=== PATIENT | female | born 1940 | race Caucasian/White ===

== ENCOUNTER 2020-11-12 07:53 | Outpatient (REF) | payer MEDICARE, SELFPAY ==
[2020-11-12 12:03] LABS: Alanine Aminotransferase 9 U/L (0-31); Anion Gap 16 (12-20); Aspartate Amino Transferase 17 U/L (5-31); Blood Urea Nitrogen 19 mg/dL (9-16); Calcium 9.4 mg/dL (8.4-10.2); Carbon Dioxide 25 mmol/L (22-29); Chloride 107 mmol/L (96-108); Cholesterol 228 mg/dL; Estimated Glomerular Filt Rate 54; Glucose Fasting 117 mg/dL (60-99); HDL Cholesterol 54 mg/dL; LDL Cholesterol Calculated 140 mg/dl; Potassium 3.9 mmol/L (3.3-5.1); Sodium 144 mmol/L (135-145); Triglycerides 172 mg/dL
[2020-11-12 12:06] LABS: Vitamin D 25-OH Total 39.7 ng/mL (>30)
== END 2020-11-12 07:54 | disposition home or self-care (01) ==
LOC: HO.HMGCLDS 07:53
PROVIDERS: PCP Internal Medicine; Visit Provider Internal Medicine
DX: I10 Essential (primary) hypertension (principal); R73.01 Impaired fasting glucose; E78.5 Hyperlipidemia, unspecified; Z78.0 Asymptomatic menopausal state
CPT/HCPCS: 36415; 80048; 80061; 82306; 84450; 84460

== ENCOUNTER 2023-12-05 10:33 | Outpatient (AMB) | payer MEDICARE, SELFPAY ==
--- NOTE | 2023-12-05 10:36 | MHC.PC.OV ---
Vital Signs 12/05/23 10:49 Height 5 ft 2 in Weight 139 lb BMI 25.4 BP 110/64 Blood Pressure Location Lt brachial Position Sitting Pulse 84 Pulse Source Pulse Oximeter Pulse Oximetry (%) 96 Oxygen Delivery Method Room Air Intake Visit Reasons: medication follow up Intake Note: Pt is here today for f/u medication Accompanied by: Child (Horacio) Allergies No Known Allergies [No Known Allergies*] Allergy (Verified 12/05/23 11:02) Medication List - Last Reconciled 12/05/23 by Mary Bustos MD aspirin (Adult Low Dose Aspirin) 81 mg PO DAILY dupilumab (Dupixent) 300 mg subcut Q2W lisinopril 5 mg PO DAILY multivitamin 1 tab PO DAILY triamcinolone acetonide 0.5% 1 appl topical BID Tobacco use date assessed: 12/05/23 Fall risk assessment: No Falls in past year Last assessed Fall Risk: 12/05/23 Dental Screening Dental Screen Date: 12/05/23 Did you have a dental visit in the last 12 months?: No Was dental information given to patient?: Patient has dentist HPI medication follow up HPI Details 83-year-old lady here today for accompanied by son and , here today for follow-up on her hypertension. She currently taking lisinopril 5 mg 1 daily, blood pressure stable controlled on present dose. She has history of osteopenia with history of rib fractures, does not want to do another bone density scan, as she does not want to take another medication. As per son and , patient is mostly sedentary, unmotivated to join in exercise programs at the senior center or at the [facility] or even doing it at home with her . She has a good appetite, but eats more sweets, more than her meals. 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 [facility] Medical History (Updated 12/06/23 @ 03:26 by Mary Bustos MD) History of dysfunctional uterine bleeding Osteopenia Osteoarthritis involving multiple joints on both sides of body History of rib fracture Impaired fasting glucose Dyslipidemia Essential hypertension Surgical History S/P JEOVANY-BSO Family History (Updated 12/05/23 @ 10:47 by Jennifer Talbot CMA) Father Diabetes mellitus Mother Breast cancer Social History Housing: House Alcohol intake: never Patient Tobacco Use Status: Former Tobacco user e-Cigarette/Vaping Use: Never Used Second Hand Smoke Exposure: No Current occupational status: retired Cognitive needs: No Hearing needs: No Vision needs: Yes Questionnaire PHQ-9 Over the last 2 weeks, how often have you been bothered by any of the following problems? 1. Little interest or pleasure in doing things: not at all 2. Feeling down, depressed, or hopeless: not at all 3. Trouble falling or staying asleep, or sleeping too much: not at all 4. Feeling tired or having little energy: not at all 5. Poor appetite or overeating: not at all 6. Feeling bad about yourself - or that you are a failure or have let yourself or your family down: not at all 7. Trouble concentrating on things, such as reading the newspaper or watching television: not at all 8. Moving or speaking so slowly that other people could have noticed. Or the opposite - being so fidgety or restless that you have been moving around a lot more than usual: not at all 9. Thoughts that you would be better off or of hurting yourself in some way: not at all Total score: 0 Depression Screening Interpretation: Negative Depression Screening Done: Yes 62020 - PHQ-9 Billing: Yes Source: Developed by Drs. Isiah Grady, Anna Robles, Bharat Dey and colleagues, with an educational ro from [employer]. Thrive Questionnaire Date Thrive assessed: 12/05/23 I am a: Patient What is your living situation today?: I have a steady place to live Within the past 12 months, did the food you bought not last and you didn't have the money to get more?: Never true Within the past 12 months, did you worry whether your food would run out before you got money to buy more?: Never true Do you have trouble paying for medicines?: No Do you have trouble getting transportation to medical appointments?: No Do you have trouble paying your heating and electricity bill?: No Do you have trouble taking care of your child, family member or friend?: No Do you have trouble with day-to-day activities such as bathing, preparing meals, shopping, managing finances, etc.?: No Are you currently unemployed and looking for a job?: No Are you interested in more education?: No THRIVE Score: 0 AUDIT C Alcohol Use Questionnaire (AUDIT-C) 1. How often do you have a drink containing alcohol?: Never Total Score: 0 BLANQUITA-7 AMB Questionnaire BLANQUITA-7 Date BLANQUITA - 7 assessed: 12/05/23 Feeling nervous, anxious, or on edge: 0 = Not at all Not being able to stop or control worryin = Not at all Worrying too much about different things: 0 = Not at all Trouble relaxin = Not at all Being so restless that it is hard to sit still: 0 = Not at all Becoming easily annoyed or irritable: 0 = Not at all Feeling afraid as if something awful might happen: 0 = Not at all Total BLANQUITA-7 score (0-4 normal; 5-9 mild; 10-14 moderate; 15-21 severe): 0 Source: Developed by Drs. Isiah Grady, Anna Robles, Bharat Dey and colleagues, with an educational ro from [employer]. BLANQUITA-7 Assessment Billing BLANQUITA-7 Assessment Tool: BLANQUITA-7 Assessment 23524 Review of Systems Const Denies fatigue, Denies fever(s), Denies frequent falls and Denies headache(s) Eyes Denies change in vision ENT Denies dizziness, Denies headache(s), Denies sinus pressure and Denies sore throat Card Denies chest pain, Denies rapid heart rate, Denies irregular heart rhythm, Denies leg edema and Denies dyspnea Resp Denies cough and Denies dyspnea GI Denies abdominal pain, Denies melena, Denies hematochezia and Reports loose stools Denies hematuria, Denies dysuria, Reports urinary incontinence and Denies urinary urgency Musc Denies arthralgias, Denies joint swelling and Reports stiffness Skin/Breast Reports as per HPI Neuro Denies dizziness, Denies frequent falls and Denies headache(s) Psych Reports no additional complaints Endo Denies fatigue Kofi/Lymph Reports no additional complaints Aller/Immun Reports no additional complaints Physical exam (Primary Care) Vital Signs: Last Vital Signs Pulse 84 04/15/24 10:49 BP 110/64 12/05/23 10:49 Pulse Ox 96 12/05/23 10:49 Oxygen Delivery Method Room Air 12/05/23 10:49 BMI result Body Mass Index 25.4 Tobacco/Smoking Status: Tobacco use Status Tobacco use date assessed 12/05/23 12/05/23 10:52 Patient Tobacco Use Status Former Tobacco user 12/05/23 10:36 e-Cigarette/Vaping Use Never Used 12/05/23 10:36 PHQ-9: PHQ-9 Score PHQ-9: Total score 0 12/05/23 11:09 Depression Screening Interpretation: Negative Thrive Assessment: Date of Thrive Assessment Date Thrive assessed 12/05/23 12/05/23 10:52 Const General: comfortable, no acute distress and alert Nutritional Appearance: average body habitus Orientation/consciousness: patient oriented x3 Limitations: ambulation with walker HENMT Head: Yes normocephalic Ears: TM's normal bilaterally and EAC's normal General nose exam: Normal external nose present, Normal nasal mucous membranes and turbinates present and No nasal discharge present Face and sinus: Yes face symmetric Mouth: oropharynx normal and moist mucous membranes Eyes General: appearance normal, both eyes and all related structures Neck Neck: Yes full ROM, Yes no lymphadenopathy and Yes supple Resp Auscultation: clear to auscultation bilaterally Cardio Other: S1-S2 present regular rate and rhythm GI Palpation (GI): Soft to palpation, nontender and no guarding Auscultation: normal bowel sounds Neuro General: patient oriented x3, moves all extremities, Normal light touch and pain sensation, no focal motor deficits and CN's II-XI intact bilaterally Extrem General: Yes full ROM, Yes no joint enlargement, Yes no clubbing, cyanosis or edema, Yes no pedal edema and Yes no calf tenderness Psych Appearance: grossly normal and well kempt Mental Status: mental status grossly normal Speech and movement: Normal speech and movement present Affect: normal affect Attitude: cooperative Assessment and Plan Assessment & Plan (1) Prurigo nodularis: Code(s): L28.1 - Prurigo nodularis Plan: Followed by dermatology currently on Dupixent (2) Dyslipidemia: Code(s): E78.5 - Hyperlipidemia, unspecified Plan: Ordered fasting lipids, (3) Essential hypertension: Code(s): I10 - Essential (primary) hypertension Plan: Blood pressure at goal of less than 130/80. Continue with lisinopril 5 mg daily. Reinforced importance of following a low sodium diet, getting regular exercise, and lowering stress levels. (4) Impaired fasting glucose: Code(s): R73.01 - Impaired fasting glucose Plan: Basic metabolic panel including fasting blood sugar ordered as well as hemoglobin A1c (5) Osteopenia: Code(s): M85.80 - Other specified disorders of bone density and structure, unspecified site Qualifiers: Osteopenia location: multiple sites Qualified Code(s): M85.89 - Other specified disorders of bone density and structure, multiple sites Plan: Reinforced importance of doing regular weight-bearing exercise, but patient unmotivated to do any exercise at all again stressed importance of taking adequate calcium from dietary sources and take at least 2000 units of vitamin-D 3 daily. Ordered her vitamin-D level and basic metabolic panel check. Does not wan to correct further bone densities testing as she does not want to take another medication if it shows that she has osteoporosis already.. Stressed importance of fall prevention Orders: Orders Alanine Aminotransferase 12/05/23 E78.5 - Hyperlipidemia, unspecified, I10 - Essential (primary) hypertension, R73.01 - Impaired fasting glucose Lipid Panel 12/05/23 E78.5 - Hyperlipidemia, unspecified, I10 - Essential (primary) hypertension, R73.01 - Impaired fasting glucose Basic Metabolic Panel Fasting 12/05/23 E78.5 - Hyperlipidemia, unspecified, I10 - Essential (primary) hypertension, R73.01 - Impaired fasting glucose AMB Hemoglobin A1c 12/05/23 E78.5 - Hyperlipidemia, unspecified, I10 - Essential (primary) hypertension, R73.01 - Impaired fasting glucose Vitamin D 25-OH Total 12/05/23 E78.5 - Hyperlipidemia, unspecified, I10 - Essential (primary) hypertension, R73.01 - Impaired fasting glucose Medications: Refilled lisinopril 5 mg PO DAILY 90 tabs 4RF I10 - Essential (primary) hypertension Coding Level of Care Code Est Pt Level 4 (10750) Diagnoses Prurigo nodularis L28.1 Dyslipidemia E78.5 Essential hypertension I10 Impaired fasting glucose R73.01 Osteopenia of multiple sites M85.89 Osteopenia location: multiple sites Additional Codes BLANQUITA-7 Assessment Billing - BLANQUITA-7 Assessment Tool: BLANQUITA-7 Assessment [id number] ([id number])
[2023-12-05 10:49] VITALS: BP 110/64; PULSE 84; O2SAT 96; BMI 25.4
== END 2023-12-05 11:17 | disposition home or self-care (01) ==
LOC: HO.HMGC 10:33
PROVIDERS: PCP Internal Medicine; Visit Provider Internal Medicine
DX: L28.1 Prurigo nodularis (principal); E78.5 Hyperlipidemia, unspecified; I10 Essential (primary) hypertension; R73.01 Impaired fasting glucose; M85.89 Other specified disorders of bone density and structure, multiple sites
CPT/HCPCS: 99214

== ENCOUNTER 2024-06-14 13:38 | Outpatient (AMB) | payer MEDICARE, SELFPAY ==
[2024-06-14 13:50] VITALS: BP 104/56; PULSE 88; O2SAT 98; BMI 25.2
--- NOTE | 2024-06-14 13:50 | A.OFFPC_ITS ---
Vital Signs 06/14/24 13:50 Height 5 ft 2 in Weight 138 lb BMI 25.2 BP 104/56 L Blood Pressure Location Rt brachial Position Sitting Pulse 88 Pulse Source Pulse Oximeter Pulse Oximetry (%) 98 Oxygen Delivery Method Room Air Intake Visit Reasons: discuss FMLA paperwork Intake Note: Pt is here today to discuss FMLA paperwork for son Auth Specialist: Present Accompanied by: Son (Mamadou) Allergies No Known Allergies [No Known Allergies*] Allergy (Verified 06/14/24 13:57) Medication List - Last Reconciled 06/14/24 by Mary Bustos MD aspirin (Adult Low Dose Aspirin) 81 mg PO DAILY dupilumab (Dupixent) 300 mg subcut Q2W lisinopril 5 mg PO DAILY multivitamin 1 tab PO DAILY triamcinolone acetonide 0.5% 1 appl topical BID Tobacco use date assessed: 06/14/24 Fall risk assessment: No Falls in past year Last assessed Fall Risk: 06/14/24 Dental Screening Dental Screen Date: 06/14/24 Did you have a dental visit in the last 12 months?: No Did you have a dental problem in the last 6 months where you did not have access to dental care?: No Was dental information given to patient?: Patient has dentist HPI discuss FMLA paperwork HPI Details 84-year-old lady with hypertension, oste oarthritis, and history of prurigo nodularis, here today for follow-up. She is accompanied by her son who is now her main end user consultant, as patient has has been sudden be from bladder cancer 2 months ago . Her Son is taking care of all the finances, utility payments, banking, as patient has been having a lot of memory difficulties, especially short-term memory. Patient has sinus requesting for an FMLA form to be completed, as he is currently on a continuously until September of next year, taking care of his mother, and making arrangements for her care when he goes back to work. Patient's blood pressure today was noted to be on the low side. She does not complain however of any headache, no lightheadedness, no chest pain or shortness of breath. She has difficulty however with walking, unable to walk for long distances has to have a wheelchair when going out of the house due to generalized weakness and pain/ stiffness in her joints. [facility] Medical History (Updated 06/14/24 @ 14:37 by Mary Bustos MD) Memory change History of dysfunctional uterine bleeding Osteopenia Osteoarthritis involving multiple joints on both sides of body History of rib fracture Impaired fasting glucose Dyslipidemia Essential hypertension Surgical History S/P JEOVANY-BSO Family History Father Diabetes mellitus Mother Breast cancer Social History Housing: House Alcohol intake: never Patient Tobacco Use Status: Former Tobacco user e-Cigarette/Vaping Use: Never Used Second Hand Smoke Exposure: No Current occupational status: retired Cognitive needs: No Hearing needs: No Vision needs: Yes Questionnaire Thrive Questionnaire Date Thrive assessed: 06/14/24 I am a: Patient What is your living situation today?: I have a steady place to live Within the past 12 months, did the food you bought not last and you didn't have the money to get more?: Never true Within the past 12 months, did you worry whether your food would run out before you got money to buy more?: Never true Do you have trouble paying for medicines?: No Do you have trouble getting transportation to medical appointments?: No Do you have trouble paying your heating and electricity bill?: No Do you have trouble with day-to-day activities such as bathing, preparing meals, shopping, managing finances, etc.?: Yes Are you currently unemployed and looking for a job?: No Are you interested in more education?: No THRIVE Score: 0 AUDIT C Alcohol Use Questionnaire (AUDIT-C) 1. How often do you have a drink containing alcohol?: Never 3. How often do you have six or more drinks on one occasion?: Never Total Score: 0 BLANQUITA-7 AMB Questionnaire BLANQUITA-7 Date BLANQUITA - 7 assessed: 06/14/24 Feeling nervous, anxious, or on edge: 1 = Several days Not being able to stop or control worryin = Several days Worrying too much about different things: 1 = Several days Trouble relaxin = Several days Being so restless that it is hard to sit still: 0 = Not at all Becoming easily annoyed or irritable: 1 = Several days Feeling afraid as if something awful might happen: 1 = Several days Total BLANQUITA-7 score (0-4 normal; 5-9 mild; 10-14 moderate; 15-21 severe): 6 Source: Developed by Drs. Isiah Grady, Anna Robles, Bharat Dey and colleagues, with an educational ro from [employer]. Review of Systems Const Denies frequent falls, Denies headache(s) and Reports weakness Eyes Denies change in vision ENT Denies dizziness and Denies headache(s) Card Denies chest pain, Denies rapid heart rate, Denies irregular heart rhythm, Denies leg edema and Denies dyspnea Resp Denies cough and Denies dyspnea GI Denies abdominal pain and Denies hematochezia Musc Denies joint swelling and Reports stiffness Skin/Breast Reports as per HPI Neuro Reports as per HPI, Denies dizziness, Denies frequent falls, Denies headache(s) and Reports weakness Psych Reports no additional complaints Endo Reports no additional complaints Kofi/Lymph Reports no additional complaints Aller/Immun Reports no additional complaints Physical exam (Primary Care) Vital Signs: Last Vital Signs Pulse 88 06/14/24 13:50 BP 104/56 L 06/14/24 13:50 Pulse Ox 98 06/14/24 13:50 Oxygen Delivery Method Room Air 06/14/24 13:50 BMI result Body Mass Index 25.2 Tobacco/Smoking Status: Tobacco use Status Tobacco use date assessed 06/14/24 06/14/24 13:54 Patient Tobacco Use Status Former Tobacco user 06/14/24 13:54 e-Cigarette/Vaping Use Never Used 06/14/24 13:54 Thrive Assessment: Date of Thrive Assessment Date Thrive assessed 06/14/24 06/14/24 13:54 Const General: comfortable, no acute distress and alert Nutritional Appearance: average body habitus Orientation/consciousness: patient oriented x3 Limitations: ambulation with walker HENMT Head: Yes normocephalic General nose exam: Normal external nose present Face and sinus: Yes face symmetric Mouth: oropharynx normal and moist mucous membranes Eyes General: appearance normal, both eyes and all related structures Neck Neck: Yes full ROM, Yes no lymphadenopathy and Yes supple Resp Auscultation: clear to auscultation bilaterally Cardio Other: S1-S2 present regular rate and rhythm GI Palpation (GI): Soft to palpation, nontender and no guarding Auscultation: normal bowel sounds Neuro General: patient oriented x3, moves all extremities, Normal light touch and pain sensation, no focal motor deficits and CN's II-XI intact bilaterally Extrem General: Yes full ROM, Yes no joint enlargement and Yes no clubbing, cyanosis or edema Psych Appearance: grossly normal and well kempt Mental Status: mental status grossly normal Speech and movement: Normal speech and movement present Affect: normal affect Attitude: cooperative Coding Level of Care Code Est Pt Level 4 (31133) Complex EM visit Add On G2211 Diagnoses Prurigo nodularis L28.1 Osteoarthritis involving multiple 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 Advise patient and sent to check her blood pressure at home and keep a log of the readings, and notify us if blood pressure persistently less than 110/70. In the meantime will just continue on lisinopril 10 mg once daily pelvic reminded to get fasting labs done, already ordered (4) Memory change: Code(s): R41.3 - Other amnesia Category: Medical Plan: Patient exhibiting some changes now more pronounced with short-term memory
== END 2024-06-14 15:26 | disposition home or self-care (01) ==
LOC: HO.HMCC 13:38
PROVIDERS: PCP Internal Medicine; Visit Provider Internal Medicine
DX: L28.1 Prurigo nodularis (principal); M15.9 Polyosteoarthritis, unspecified; I10 Essential (primary) hypertension; R41.3 Other amnesia

== ENCOUNTER → 2024-06-14 13:38 | Outpatient (BNVA) | payer MEDICARE, SELFPAY | PROVIDERS: PCP Internal Medicine; Visit Provider Internal Medicine | DX: L28.1 Prurigo nodularis (principal); M15.9 Polyosteoarthritis, unspecified; I10 Essential (primary) hypertension; R41.3 Other amnesia | CPT/HCPCS: 96127; 99212 ==

== ENCOUNTER 2024-09-25 15:43 | Inpatient (IN) | payer MEDICARE, SELFPAY ==
--- NOTE | 2024-09-25 | ECG_ITS ---
Test Reason : SOB Blood Pressure : */* mmHG Vent. Rate : 100 BPM Atrial Rate : 100 BPM P-R Int : 182 ms QRS Dur : 58 ms QT Int : 336 ms P-R-T Axes : * 58 57 degrees QTcB Int : 433 ms Normal sinus rhythm Normal ECG When compared with ECG of 09-Dec-2012 08:15, No significant changes seen Referred By: Generic ED Physician Electronically Signed By: Murtaza Pisano
--- NOTE | ~2024-09-25 | XR_ITS ---
CLINICAL HISTORY: sob 1 view chest x-ray Comparison: CR/SR - XR CHEST 1V - 09/25/24 17:02 EST Findings: Lungs are clear. There is a small hiatal hernia. Heart size is normal. No acute fracture. IMPRESSION: 1. No acute findings. This document has been electronically signed by: Natalya Cespedes MD on 09/29/2024 16:09:16
--- NOTE | ~2024-09-25 | CT_ITS ---
CLINICAL HISTORY: lowrer abd pain with diarrhea CT abdomen and pelvis with contrast Comparison: CR/SR - XR CHEST 1V - 09/25/24 17:[address]/VT - ABD PELV W IV CON ONLY [id number] - 11/03/19 06:[address]/VT/SR - ABD PELV W IV CON ONLY [id number] - 11/03/19 06:57 EDT Findings: No consolidation at the lung bases. Unremarkable gallbladder and bladder. Status post hysterectomy. The other solid organs are unremarkable. Moderate-sized hiatal hernia. No bowel wall thickening or dilation. A normal appendix is identified. Colonic diverticulosis. No aneurysm. Severe calcified atherosclerotic disease. No lymphadenopathy. No ascites. No acute osseous abnormality. Grade 1 anterolisthesis of L4 on L5 and L5 on S1, degenerative. Impression: No acute findings. This document has been electronically signed by: Magdalena Moreno MD on 09/25/2024 17:49:47
--- NOTE | ~2024-09-25 | XR_ITS ---
EXAMINATION: XR CHEST CLINICAL INFORMATION: sob COMPARISON: Chest with left RIBS 11/06/2019 TECHNIQUE: Frontal view of the chest was obtained. FINDINGS: The lungs are well-expanded and clear acute pneumonic process. Heart size and pulmonary vascularity is normal. No gross bony abnormality seen. Suspect small hiatal hernia XR/XR chest 1V IMPRESSION: Unremarkable chest exam. Suspect small hiatal hernia. Electronically signed by: Chavo Yang MD 09/25/2024 05:14 PM EST
[2024-09-25 15:58] VITALS: BP 144/51; PULSE 104; PULSE 111; RESP 22; TEMP 37; O2SAT 94; O2SAT 98; BMI 26.0
[2024-09-25 16:03] VITALS: BP 112/57; PULSE 111; RESP 22; TEMP 37; O2SAT 98
--- NOTE | 2024-09-25 16:45 | ED_ITS ---
HPI - General Adult General Chief complaint: Dyspnea Stated complaint: ams,incontinence x3 days Time Seen by Provider: 09/25/24 16:14 Source: patient and family Mode of arrival: EMS Limitations: no limitations History of Present Illness ED Provider: HPI narrative: Patient's history of hypertension lives at home alone been feeling very weak for last 4 days having multiple loose bowels 3- 4 times a day with lower abdominal cramps no nausea no vomiting been eating normally does walk with a walker but very unsteady on her feet patient is gradually getting more weak and family unable to take care of her. No recent antibiotic intake no recent travel no bad food ingestion no fever no chills no any family member sick Related Data Home Medications ?Medication ?Instructions ?Recorded ?Confirmed aspirin 81 mg tablet,delayed 81 mg PO DAILY 11/14/20 09/25/24 release (Adult Low Dose Aspirin) multivitamin 1 tab PO DAILY 11/14/20 09/25/24 dupilumab 300 mg/2 mL subcutaneous 300 mg subcut Q2W 07/29/22 09/25/24 pen injector (Dupixent) Previous Rx's ?Medication ?Instructions ?Recorded lisinopril 5 mg tablet 5 mg PO DAILY #90 tabs 12/05/23 Allergies Allergy/AdvReac Type Severity Reaction Status Date / Time No Known Allergies Allergy Verified 09/25/24 16:01 [No Known Allergies*] Review of Systems 2 Review of Systems: Yes all other systems are reviewed and are negative [facility] Past Medical History Medical History Memory change History of dysfunctional uterine bleeding Osteopenia Osteoarthritis involving multiple joints on both sides of body History of rib fracture Impaired fasting glucose Dyslipidemia Essential hypertension Surgical History S/P JEOVANY-BSO Family History Family History Father Diabetes mellitus Mother Breast cancer Social History Social History Housing: House Alcohol intake: never Patient Tobacco Use Status: Former Tobacco user Smoked in Last 30 Days: No e-Cigarette/Vaping Use: Never Used Second Hand Smoke Exposure: No Use of substances other than those prescribed or required for medical reasons: No Advance Directives: Yes Advance Directives on File: Yes Advance Directives Date on File: 12/05/23 Do you have a plan to hurt others: No Plan Current occupational status: retired Cognitive needs: No Hearing needs: No Vision needs: Yes Physical Exam ED Vital Signs: Vital Signs - 24 hr 09/25/24 15:58 09/25/24 16:03 09/25/24 16:03 Temperature 98.6 F 98.6 F Pulse Rate 111 H 111 H Respiratory Rate 22 H 22 H 22 H Blood Pressure 112/57 L Pulse Oximetry 98 98 Oxygen Delivery Method Nasal Cannula Nasal Cannula Oxygen Flow Rate 09/25/24 19:35 09/25/24 20:07 Temperature 98.0 F Pulse Rate 85 89 Respiratory Rate 18 12 Blood Pressure 145/64 H Pulse Oximetry 98 Oxygen Delivery Method Nasal Cannula Oxygen Flow Rate 4 BMI result Body Mass Index 26.0 Appearance: Alert. Oriented X3. No acute distress. Eyes: No pallor no icterus ENT: Pharynx normal. Oral Mucosa moist Neck: Normal inspection. Neck supple. CVS: Normal heart rate and rhythm. Pulses normal. Respiratory: No respiratory distress. Equal air entry bilateral, bilateral wheezing no rales Abdomen: Soft and diffuse tenderness lower abdominal suprapubic area no rebound tenderness or guarding Bowel sounds are present, no mass palpable, no CVA tenderness Skin: Skin warm and dry. Normal skin color. Normal skin turgor. Extremities: No lower extremity edema. No calf tenderness Neuro: Oriented X 3. No motor deficit. No sensory deficit.No cerebellar signs , cranial nerves II-XII intact Medications Administered Generic Name Dose Route Start Last Admin Trade Name Freq PRN Reason Stop Dose Admin Acetaminophen 975 mg 09/25/24 23:10 09/26/24 00:18 Acetaminophen 325 Mg Tablet PO 975 mg Q6H PRN Administration Pain, Mild 1-3,fever,headache Enoxaparin Sodium 40 mg 09/25/24 23:15 09/25/24 23:54 Enoxaparin Sodium 40 Mg/0.4 Ml Syringe SUBCUT Not Given BEDTIME SARAH Discontinued Medications Generic Name Dose Route Start Last Admin Trade Name Freq PRN Reason Stop Dose Admin Albuterol Sulfate 2.5 mg/ 0 mg 09/25/24 18:46 09/25/24 19:31 Albuterol/Ipratropium 3 ml INHALE 09/25/24 18:47 5 dose ONCE ONE Administration Sodium Chloride 1,000 mls @ 999 mls/hr 09/25/24 16:36 09/25/24 16:56 Ns IV 09/25/24 17:36 999 mls/hr .Q1H1M ONE Administration Oseltamivir Phosphate 75 mg 09/25/24 18:44 09/25/24 20:23 Oseltamivir Phosphate 75 Mg Capsule PO 09/25/24 18:45 75 mg ONCE ONE Administration Medical Decision Making Medical Decision Making [facility] Narrative: Patient has increased weakness difficulty in ambulation noted to have influenza a and anemic with hemoglobin of 8.1 her baseline hemoglobin was 13 in 2019 denies any black stools chest x-ray negative for pneumonia guaiac was negative chest x-ray negative for infiltrate will admit patient for anemia/weakness/influenza a also workup showed iron-deficiency anemia with iron of 24 saturation 7% will start on ferrous sulfate CT scan of the abdomen negative chest x-ray negative Differential Diagnosis Differential Diagnoses: The differential diagnosis associated with the presentation includes Viral pneumonia/pneumonia/metabolic derangement/anemia Admission/Observation Consideration of admission/observation: Escalation of care including admission/observation considered Consult Healthcare Provider Management of the patient was discussed with: Hospitalist Lab Data [facility] Lab Attestation statement: I reviewed the patient's lab results. 09/25/24 16:47 09/25/24 16:47 Labs: Lab Results 09/25/24 09/25/24 09/25/24 Range/Units 16:47 16:57 19:24 WBC 6.0 (4.8-10.8) X10*3/uL RBC 3.32 L (4.20-5.50) X10*6/uL Hgb 8.1 L (12.0-16.0) g/dl Hct 27.2 L (37.0-47.0) % MCV 81.9 (80.0-98.0) fL MCH 24.4 L (27.0-33.0) pg MCHC 29.8 L (31.0-35.0) g/dl RDW 15.7 (11.0-16.0) % Plt Count 248 (160-400) X10*3/uL MPV 10.4 (9.4-12.3) fL Immature Gran % (Auto) 0.3 (0.0-0.4) % Neut % (Auto) 81.8 H (45-73) % Lymph % (Auto) 8.7 L (20-40) % [place] % (Auto) 8.0 (2-11) % Eos % (Auto) 0.2 (0-4) % Baso % (Auto) 1.0 (0-2) % Lymph # (Auto) 0.5 L (1.2-4.9) X10*3/uL [place] # (Auto) 0.5 (0.1-1.2) X10*3/uL Eos # (Auto) 0.0 (0.0-0.4) X10*3/uL Baso # (Auto) 0.1 (0.0-0.2) X10*3/uL Abs Immat Gran (auto) 0.02 (0.00-0.03) X10*3/uL Absolute Neuts (auto) 4.9 (2.0-8.3) x10*3/uL Absolute Nucleated RBC 0.000 (0.0-0.012) X10*3/uL Nucleated RBC % (auto) 0.0 (0.0-0.2) /100WBC VBG pH 7.37 (7.32-7.43) VBG pCO2 41 mmHg VBG pO2 41 mmHg VBG HCO3 24 (22-26) mmol/L VBG O2 Saturation 64.0 % VBG Base Excess -0.4 mmol/L Sodium 144 (135-145) mmol/L Potassium 4.2 (3.3-5.1) mmol/L Chloride 109 H (96-108) mmol/L Carbon Dioxide 22 (22-29) mmol/L Anion Gap 17 (12-20) BUN 22 H (9-16) mg/dL Creatinine 1.05 (0.5-1.4) mg/dL Estim Creat Clear Calc 33.8 Estimated GFR 50 Random Glucose 158 H (60-115) mg/dL Lactic Acid 1.9 (0.5-2.0) mmol/L Calcium 8.2 L D (8.4-10.2) mg/dL Magnesium 1.8 (1.6-2.6) mg/dL Iron 24 L (30-160) mcg/dL TIBC 321 (228-428) mcg/dL % Saturation 7 L (15-50) % Unsat Iron Binding 297 ug/dL Total Bilirubin 0.4 (0.0-1.0) mg/dL AST 34 H (5-31) U/L ALT 16 (0-31) U/L Alkaline Phosphatase 63 (39-117) U/L B-Natriuretic Peptide 175 H (<100) pg/mL Total Protein 6.7 (6.5-8.0) g/dL Albumin 3.5 (3.5-5.0) g/dL Urine Color Urine Appearance Urine pH (5.0-9.0) Ur Specific [place] (1.005-1.025) Urine Protein (Neg-Trace) mg/dL Urine Glucose (UA) (Negative) mg/dL Urine Ketones (Negative) mg/dL Urine Blood (Negative) Urine Nitrite (Negative) Ur Leukocyte Esterase (Negative) Urine RBC (0-2) /HPF Urine WBC (0-5) /HPF Ur Squamous Epith Cells (0-2) /HPF Urine Bacteria (None Seen) Hyaline Casts (0-2) /LPF Stool Occult Blood NEGATIVE (NEGATIVE) Influenza Type A (PCR) POSITIVE A (Negative) Influenza Type B (PCR) NEGATIVE (Negative) RSV RNA Qual (PCR) NEGATIVE (Negative) SARS-CoV-2 RNA (RT-PCR) NEGATIVE (Negative) Blood Type A Positive Antibody Screen NEGATIVE 09/25/24 Range/Units 20:29 WBC (4.8-10.8) X10*3/uL RBC (4.20-5.50) X10*6/uL Hgb (12.0-16.0) g/dl Hct (37.0-47.0) % MCV (80.0-98.0) fL MCH (27.0-33.0) pg MCHC (31.0-35.0) g/dl RDW (11.0-16.0) % Plt Count (160-400) X10*3/uL MPV (9.4-12.3) fL Immature Gran % (Auto) (0.0-0.4) % Neut % (Auto) (45-73) % Lymph % (Auto) (20-40) % [place] % (Auto) (2-11) % Eos % (Auto) (0-4) % Baso % (Auto) (0-2) % Lymph # (Auto) (1.2-4.9) X10*3/uL [place] # (Auto) (0.1-1.2) X10*3/uL Eos # (Auto) (0.0-0.4) X10*3/uL Baso # (Auto) (0.0-0.2) X10*3/uL Abs Immat Gran (auto) (0.00-0.03) X10*3/uL Absolute Neuts (auto) (2.0-8.3) x10*3/uL Absolute Nucleated RBC (0.0-0.012) X10*3/uL Nucleated RBC % (auto) (0.0-0.2) /100WBC VBG pH (7.32-7.43) VBG pCO2 mmHg VBG pO2 mmHg VBG HCO3 (22-26) mmol/L VBG O2 Saturation % VBG Base Excess mmol/L Sodium (135-145) mmol/L Potassium (3.3-5.1) mmol/L Chloride (96-108) mmol/L Carbon Dioxide (22-29) mmol/L Anion Gap (12-20) BUN (9-16) mg/dL Creatinine (0.5-1.4) mg/dL Estim Creat Clear Calc Estimated GFR Random Glucose (60-115) mg/dL Lactic Acid (0.5-2.0) mmol/L Calcium (8.4-10.2) mg/dL Magnesium (1.6-2.6) mg/dL Iron (30-160) mcg/dL TIBC (228-428) mcg/dL % Saturation (15-50) % Unsat Iron Binding ug/dL Total Bilirubin (0.0-1.0) mg/dL AST (5-31) U/L ALT (0-31) U/L Alkaline Phosphatase (39-117) U/L B-Natriuretic Peptide (<100) pg/mL Total Protein (6.5-8.0) g/dL Albumin (3.5-5.0) g/dL Urine Color Yellow Urine Appearance Clear Urine pH 5.0 (5.0-9.0) Ur Specific [place] 1.025 (1.005-1.025) Urine Protein 30 (1+) H (Neg-Trace) mg/dL Urine Glucose (UA) Negative (Negative) mg/dL Urine Ketones 15 (Negative) mg/dL Urine Blood Negative (Negative) Urine Nitrite Negative (Negative) Ur Leukocyte Esterase Negative (Negative) Urine RBC 0-2 (0-2) /HPF Urine WBC 0-5 (0-5) /HPF Ur Squamous Epith Cells 0-2 (0-2) /HPF Urine Bacteria None Seen (None Seen) Hyaline Casts 3-5 (0-2) /LPF Stool Occult Blood (NEGATIVE) Influenza Type A (PCR) (Negative) Influenza Type B (PCR) (Negative) RSV RNA Qual (PCR) (Negative) SARS-CoV-2 RNA (RT-PCR) (Negative) Blood Type Antibody Screen Independent Interpretation I performed an independent interpretation of an: EKG and CT Scan Interpretation: Normal sinus rhythm heart rate 100 beats per minute normal interval normal axis no acute STT wave changes no acute ischemia Radiology Impression Discussion of test interpretation with radiology: I have reviewed the radiologist's reading. Discharge Plan Discharge Clinical Impression: Influenza A, Severe anemia, Weakness Patient Disposition: Admitted As Inpatient
[2024-09-25 16:54] LABS: MANUAL DIFF FLAG NO
[2024-09-25 16:56] LABS: Basophils Absolute Auto 0.1 X10*3/uL (0.0-0.2); Eosinophils Percent Auto 0.2 % (0-4); Hematocrit 27.2 % (37.0-47.0); Hemoglobin 8.1 g/dl (12.0-16.0); Imm Gran Abs Auto 0.02 X10*3/uL (0.00-0.03); Imm Gran Pct Auto 0.3 % (0.0-0.4); Lymphocytes Absolute Auto 0.5 X10*3/uL (1.2-4.9); Lymphocytes Percent Auto 8.7 % (20-40); Mean Corpuscular HGB Conc 29.8 g/dl (31.0-35.0); Mean Corpuscular Hemoglobin 24.4 pg (27.0-33.0); Mean Corpuscular Volume 81.9 fL (80.0-98.0); Mean Platelet Volume 10.4 fL (9.4-12.3); Monocytes Absolute Auto 0.5 X10*3/uL (0.1-1.2); Neutrophils Absolute Auto 4.9 x10*3/uL (2.0-8.3); Neutrophils Percent Auto 81.8 % (45-73); Platelet Count 248 X10*3/uL (160-400); Red Blood Count 3.32 X10*6/uL (4.20-5.50); Red Cell Distribution Width 15.7 % (11.0-16.0)
[2024-09-25] MEDS: 0.9 % Sodium Chloride 1,000 ML 999 ML IV (16:56)
[2024-09-25 17:03] LABS: VBG Base Excess -0.4 mmol/L; VBG HCO3 24 mmol/L (22-26); VBG pCO2 41 mmHg; VBG pH 7.37 (7.32-7.43); VBG pO2 41 mmHg
[2024-09-25 17:13] LABS: Venous Blood Gas Refer to POC result
[2024-09-25 17:14] LABS: Alanine Aminotransferase 16 U/L (0-31); Albumin Level 3.5 g/dL (3.5-5.0); Alkaline Phosphatase 63 U/L (39-117); Anion Gap 17 (12-20); Aspartate Amino Transferase 34 U/L (5-31); Bilirubin Total 0.4 mg/dL (0.0-1.0); Blood Urea Nitrogen 22 mg/dL (9-16); Calcium 8.2 mg/dL (8.4-10.2); Carbon Dioxide 22 mmol/L (22-29); Chloride 109 mmol/L (96-108); Creatinine Clr Calc Pharmacy 33.8; Estimated Glomerular Filt Rate 50; Glucose Random 158 mg/dL (60-115); Lactic Acid 1.9 mmol/L (0.5-2.0); Magnesium 1.8 mg/dL (1.6-2.6); Potassium 4.2 mmol/L (3.3-5.1); Sodium 144 mmol/L (135-145); Total Protein 6.7 g/dL (6.5-8.0)
[2024-09-25 17:19] LABS: B Type Natriuretic Peptide 175 pg/mL (<100)
[2024-09-25 17:35] LABS: Influenza A PCR POSITIVE (Negative); Influenza B PCR NEGATIVE (Negative); Resp Syncy Virus RNA Qual PCR NEGATIVE (Negative); SARS COV2 PCR INHOUSE NEGATIVE (Negative)
[2024-09-25 19:05] LABS: Iron 24 mcg/dL (30-160); Percent Iron Saturation 7 % (15-50); Total Iron Binding Capacity 321 mcg/dL (228-428); Unsaturated Iron Binding 297 ug/dL
[2024-09-25] MEDS: Albuterol Sulfate 2.5 MG, Albuterol/Iprat 2.5/0.5MG 3 ML 3 ML INHALE (19:31)
[2024-09-25 19:33] LABS: OBS Int Ctl Valid YES; OBS1 NEGATIVE (NEGATIVE)
[2024-09-25 19:35] VITALS: PULSE 85; RESP 18; O2SAT 95
[2024-09-25 20:07] VITALS: BP 145/64; PULSE 89; RESP 12; TEMP 36.7; O2SAT 98
[2024-09-25] MEDS: Oseltamivir Phosphate 75 MG CAPSULE PO (20:23)
--- NOTE | 2024-09-25 20:40 | PHA.MEDREC ---
Addendum entered by Meet Mathews RPh 09/25/24 21:06: Med rec was reviewed by Daniel. Original Note: Pharmacy Consult ? Medication Reconciliation Pharmacy has completed the medication reconciliation. Spoke with patients family at bedside and they were able to confirm the patients medications. The patients son at bedside confirmed the patient is still taking the Dupixant injection every 2 week and confirmed she just got it last . They confirmed the patient last took her medications yesterday.
[2024-09-25 20:43] LABS: Appearance Urine Clear; Color Urine Yellow; Glucose Urine UA Negative (Negative); Leukocyte Esterase Urine Negative (Negative); Nitrite Urine Negative (Negative); Specific Gravity - Urine 1.025 (1.005-1.025); UMIC TRIGGER UACC YES; Urine Blood Negative (Negative); Urine Ketones 15 mg/dL (Negative); Urine Protein 30 (1+) mg/dL (Neg-Trace)
[2024-09-25 20:56] LABS: Bacteria Urine None Seen (None Seen); RBC Urine 0-2 /HPF (0-2); Squamous Epithelial Cell Urine 0-2 /HPF (0-2); WBC Urine 0-5 /HPF (0-5)
--- NOTE | 2024-09-25 23:18 | PM.IMHP ---
History of Present Illness Date of Service: 09/25/24 Attending physician on admission: Errol Eli Chief Complaint: AMS< weak, abd cramping Patient is an 84-year-old female with a past medical history significant for memory issues, hypertension, osteoarthritis and hyperlipidemia, who presented to the ED due to altered mental status, weakness, abdominal cramping and labored breathing. She reported loose stools 3 to 4 times a day for the past few weeks without any blood or melena. She denies any recent antibiotics or travel. She has also had a dry nonproductive cough and denies any nausea, vomiting, runny nose or congestion. She also denies any body aches headaches or URI symptoms. Her daughter reports that she does have wheezing when she exerts herself. Review of Systems Constitutional: Constitutional: Denies body ache(s), Denies chills, Denies fatigue, Denies fever(s) and Denies headache(s) Eyes: Eyes: Denies change in vision and Denies photophobia ENT: Denies headache(s), Denies nasal congestion, Denies nasal discharge, Denies neck pain and Denies sore throat Cardiovascular: Cardiovascular: Denies chest pain, Denies syncope, Denies rapid heart rate, Denies leg edema, Denies lightheadedness and Reports dyspnea on exertion Respiratory: Respiratory: Denies chest congestion, Reports cough, Reports dyspnea on exertion and Reports wheezing Gastrointestinal: Gastrointestinal: Reports abdominal pain, Denies melena, Denies hematochezia, Reports diarrhea, Denies nausea and Denies vomiting Genitourinary: Genitourinary: Denies hematuria, Denies difficulty voiding, Denies dysuria and Denies urinary urgency Musculoskeletal: Musculoskeletal: Denies neck pain Integumentary/Breasts: Skin/Breast: Denies rash Neurologic: Reports confusion, Denies syncope and Denies headache(s) Psychiatric: Psychiatric: Reports confusion Endocrine: Endocrine: Denies fatigue Hematologic/Lymphatic: Hematologic/Lymphatic: Denies easy bleeding and Denies easy bruising Allergic/Immunologic: Allergic/Immunologic: Reports wheezing PMFSH Medical History Memory change History of dysfunctional uterine bleeding Osteopenia Osteoarthritis involving multiple joints on both sides of body History of rib fracture Impaired fasting glucose Dyslipidemia Essential hypertension Family History Father Diabetes mellitus Mother Breast cancer Surgical History S/P JEOVANY-BSO Social History Housing: House Alcohol intake: never Patient Tobacco Use Status: Former Tobacco user Smoked in Last 30 Days: No e-Cigarette/Vaping Use: Never Used Second Hand Smoke Exposure: No Use of substances other than those prescribed or required for medical reasons: No Advance Directives: Yes Advance Directives on File: Yes Advance Directives Date on File: 12/05/23 Do you have a plan to hurt others: No Plan Current occupational status: retired Cognitive needs: No Hearing needs: No Vision needs: Yes Narrative: Previous smoker, no alcohol or drug use Meds Allergies Allergy/AdvReac Type Severity Reaction Status Date / Time No Known Allergies Allergy Verified 09/25/24 16:01 [No Known Allergies*] Active Medications: Current Medications Acetaminophen (Acetaminophen 325 Mg Tablet) 975 mg PO Q6H PRN PRN Reason: Pain, Mild 1-3,fever,headache Albuterol/Ipratropium (Albuterol/Iprat 2.5/0.5mg 3 Ml Ampul.Neb) 3 ml INHALE RQ4H WHILE AWAKE SARAH Aspirin (Aspirin Enteric Coated 81 Mg Tablet.Dr) 81 mg PO DAILY SARAH Calcium Carbonate (Calcium Carbonate 750 Mg Tab.Chew) 750 mg PO Q4H PRN PRN Reason: Heartburn Enoxaparin Sodium (Enoxaparin Sodium 40 Mg/0.4 Ml Syringe) 40 mg SUBCUT Q24H SARAH Lisinopril (Lisinopril 5 Mg Tablet) 5 mg PO DAILY SARAH; Protocol Magnesium Hydroxide (Milk Of Magnesia 30 Ml Oral.Susp) 30 ml PO DAILY PRN PRN Reason: Constipation Melatonin (Melatonin 3 Mg Tablet) 6 mg PO BEDTIME PRN PRN Reason: Insomnia Multivitamins/Vitamin C (Multivitamin Tablet) 1 tab PO DAILY [facility] Ondansetron HCl (Ondansetron Hcl 4 Mg/2 Ml Vial) 4 mg IVPUSH Q8H PRN PRN Reason: Nausea and Vomiting Oseltamivir Phosphate (Oseltamivir Phosphate 30 Mg Capsule) 30 mg PO BID SARAH Stop: 09/30/24 21:01 Polyethylene Glycol (Polyethylene Glycol 3350 17 Gm Powd.Pack) 17 gm PO DAILY PRN PRN Reason: Constipation Sodium Chloride (0.9 % Sodium Chloride Flush 3 Ml Syringe) 3 ml IVFLUSH QSHIFT [facility] Home Medications ?Medication ?Instructions ?Recorded ?Confirmed ?Last Taken ?Type aspirin 81 mg tablet,delayed 81 mg PO DAILY 11/14/20 09/25/24 09/24/24 History release (Adult Low Dose Aspirin) multivitamin 1 tab PO DAILY 11/14/20 09/25/24 09/24/24 History dupilumab 300 mg/2 mL subcutaneous 300 mg subcut Q2W 07/29/22 09/25/24 09/20/24 History pen injector (Dupixent) Physical Exam Vital Signs and Narrative: Vital Signs: Last Vital Signs Temp 98.0 F 09/25/24 20:07 Pulse 89 09/25/24 20:07 Resp 12 09/25/24 20:07 BP 145/64 H 09/25/24 20:07 Pulse Ox 98 09/25/24 20:07 O2 Del Method Nasal Cannula 09/25/24 20:07 O2 Flow Rate 4 09/25/24 20:07 Oxygen Flow Rate 2 09/25/24 15:58 BMI result Body Mass Index 26.0 General: AOx3, slightly agitated, no acute distress Resp: Diminished throughout, mild expiratory wheezing CVS: S1, S2, mild tachycardia, normal rhythm GI: +BS, lower abdominal tenderness, no distention Skin: Warm, dry Neuro: Cranial nerves II-XII grossly intact bilaterally. Motor grossly intact bilaterally Extremities: No lower extremity edema Psych: Appropriate affect Const: General: confusion Orientation/consciousness: confusion Eyes: Direct Ophthalmoscopy: No photophobia Neuro: General: confusion Results Labs 09/25/24 16:47 09/25/24 16:47 Labs: Laboratory Results - last 24 hr 09/25/24 09/25/24 09/25/24 16:47 16:57 19:24 MCV 81.9 MCH 24.4 L MCHC 29.8 L RDW 15.7 Plt Count 248 MPV 10.4 Immature Gran % (Auto) 0.3 Neut % (Auto) 81.8 H Lymph % (Auto) 8.7 L [place] % (Auto) 8.0 Eos % (Auto) 0.2 Baso % (Auto) 1.0 Lymph # (Auto) 0.5 L [place] # (Auto) 0.5 Eos # (Auto) 0.0 Baso # (Auto) 0.1 Abs Immat Gran (auto) 0.02 Absolute Neuts (auto) 4.9 Absolute Nucleated RBC 0.000 Nucleated RBC % (auto) 0.0 VBG pH 7.37 VBG pCO2 41 VBG pO2 41 VBG HCO3 24 VBG O2 Saturation 64.0 VBG Base Excess -0.4 Anion Gap 17 Estim Creat Clear Calc 33.8 Estimated GFR 50 Random Glucose 158 H Lactic Acid 1.9 Calcium 8.2 L D Magnesium 1.8 Iron 24 L TIBC 321 % Saturation 7 L Unsat Iron Binding 297 Total Bilirubin 0.4 AST 34 H ALT 16 Alkaline Phosphatase 63 B-Natriuretic Peptide 175 H Total Protein 6.7 Albumin 3.5 Urine Color Urine Appearance Urine pH Ur Specific [place] Urine Protein Urine Glucose (UA) Urine Ketones Urine Blood Urine Nitrite Ur Leukocyte Esterase Urine RBC Urine WBC Ur Squamous Epith Cells Urine Bacteria Hyaline Casts Stool Occult Blood NEGATIVE Influenza Type A (PCR) POSITIVE A Influenza Type B (PCR) NEGATIVE RSV RNA Qual (PCR) NEGATIVE SARS-CoV-2 RNA (RT-PCR) NEGATIVE Blood Type A Positive Antibody Screen NEGATIVE 09/25/24 20:29 MCV MCH MCHC RDW Plt Count MPV Immature Gran % (Auto) Neut % (Auto) Lymph % (Auto) [place] % (Auto) Eos % (Auto) Baso % (Auto) Lymph # (Auto) [place] # (Auto) Eos # (Auto) Baso # (Auto) Abs Immat Gran (auto) Absolute Neuts (auto) Absolute Nucleated RBC Nucleated RBC % (auto) VBG pH VBG pCO2 VBG pO2 VBG HCO3 VBG O2 Saturation VBG Base Excess Anion Gap Estim Creat Clear Calc Estimated GFR Random Glucose Lactic Acid Calcium Magnesium Iron TIBC % Saturation Unsat Iron Binding Total Bilirubin AST ALT Alkaline Phosphatase B-Natriuretic Peptide Total Protein Albumin Urine Color Yellow Urine Appearance Clear Urine pH 5.0 Ur Specific [place] 1.025 Urine Protein 30 (1+) H Urine Glucose (UA) Negative Urine Ketones 15 Urine Blood Negative Urine Nitrite Negative Ur Leukocyte Esterase Negative Urine RBC 0-2 Urine WBC 0-5 Ur Squamous Epith Cells 0-2 Urine Bacteria None Seen Hyaline Casts 3-5 Stool Occult Blood Influenza Type A (PCR) Influenza Type B (PCR) RSV RNA Qual (PCR) SARS-CoV-2 RNA (RT-PCR) Blood Type Antibody Screen Imaging Radiologist's Impressions: Impressions Chest X-Ray 09/25/24 16:39 IMPRESSION: Unremarkable chest exam. Suspect small hiatal hernia. Electronically signed by: Chavo Yang MD 09/25/2024 05:[address] [facility] Assessment and Plan (1) Sepsis: Status: Acute (2) Metabolic encephalopathy: Status: Acute (3) Influenza: Status: Acute (4) Severe anemia: Status: Acute Plan Patient is an 84-year-old female with a past medical history significant for memory issues, hypertension, osteoarthritis and hyperlipidemia, who presented to the ED due to altered mental status, weakness, abdominal cramping and labored breathing. Workup significant for tachycardia and tachypnea, flu A positive, anemia. Sepsis secondary to influenza A with metabolic encephalopathy - WBC normal, lactic acid normal, tachycardic and tachypneic, blood cultures x2 pending, not severe sepsis - chest x-ray negative - abdominopelvic CT negative - given 1 L IV fluids in ED - started on Tamiflu, continue - DuoNebs every 4 hours as needed for wheezing or shortness of breath - BNP normal - check stool studies including C diff and GI panel - monitor CBC and BMP Iron-deficiency anemia, likely contributing to weakness - hemoglobin 8.1, hematocrit 27.2 - no need for blood transfusion at this time - fecal occult blood test negative - GI consult Hypertension - continue lisinopril DNR/DNI VTE prophylaxis: pneumoboots due to severe anemia, await GI consult Patient with sepsis secondary to influenza a complicated by metabolic encephalopathy and iron-deficiency anemia, requiring admission for at least 2 midnight stay for monitoring and further workup. Quality Stroke Does the patient have a stroke diagnosis?: No VTE Prior VTE?: No VTE Risk Level:: Medical - moderate - high VTE Device Contraindication: Treatment Not Indicated VTE Drug Contraindication: N/A - Med Ordered
[2024-09-26] VITALS (15 sets, daily range): BP systolic 133–181; BP diastolic 55–114; PULSE 74–90; RESP 12–34; TEMP 36.4–37; O2SAT 97–100; BMI 24.8
[2024-09-26] MEDS: Acetaminophen 325 MG TABLET 975 MG PO (00:18)
[2024-09-26] MEDS: Ferrous Sulfate 324 MG TABLET.DR PO (01:09)
[2024-09-26] MEDS: Albuterol/Iprat 2.5/0.5MG 3 ML AMPUL.NEB INHALE ×2 (01:23→21:27)
[2024-09-26 04:56] LABS: MANUAL DIFF FLAG NO
[2024-09-26 04:57] LABS: Basophils Percent Auto 0.2 % (0-2); Hematocrit 26.4 % (37.0-47.0); Hemoglobin 7.6 g/dl (12.0-16.0); Imm Gran Abs Auto 0.04 X10*3/uL (0.00-0.03); Imm Gran Pct Auto 0.8 % (0.0-0.4); Lymphocytes Absolute Auto 0.3 X10*3/uL (1.2-4.9); Lymphocytes Percent Auto 5.5 % (20-40); Mean Corpuscular HGB Conc 28.8 g/dl (31.0-35.0); Mean Corpuscular Volume 83.3 fL (80.0-98.0); Mean Platelet Volume 10.8 fL (9.4-12.3); Monocytes Absolute Auto 0.2 X10*3/uL (0.1-1.2); Monocytes Percent Auto 3.8 % (2-11); Neutrophils Absolute Auto 4.8 x10*3/uL (2.0-8.3); Neutrophils Percent Auto 89.7 % (45-73); Platelet Count 224 X10*3/uL (160-400); Red Blood Count 3.17 X10*6/uL (4.20-5.50); Red Cell Distribution Width 15.5 % (11.0-16.0); White Blood Count 5.3 X10*3/uL (4.8-10.8)
[2024-09-26 05:19] LABS: Anion Gap 16 (12-20); Blood Urea Nitrogen 30 mg/dL (9-16); Calcium 8.5 mg/dL (8.4-10.2); Carbon Dioxide 17 mmol/L (22-29); Chloride 113 mmol/L (96-108); Creatinine Clr Calc Pharmacy 33.2; Estimated Glomerular Filt Rate 49; Glucose Random 289 mg/dL (60-115); Potassium 4.5 mmol/L (3.3-5.1); Sodium 141 mmol/L (135-145)
--- NOTE | 2024-09-26 05:21 | PC.NURSE ---
Patient reported feeling urge to urinate. Patient refused using a bed paulson. Purewick applied and connected to wall suction. Patient offers no complaints at present, call cardoza in patient's reach, plan of care ongoing.
--- NOTE | 2024-09-26 07:34 | HO.PM.IMPN ---
Subjective Subjective Date of Service: 09/26/24 Interval History: Being followed for sepsis secondary to influenza a with metabolic encephalopathy Feels better but tired, feels cold, denies fever, no chills, denies abdominal pain, no further loose stools. Daughter at bedside assisted in history patient has chronic memory issues able to answer simple questions and recognize family members. No history of melena or hematochezia no history of hematemesis, eat regular diet. Review of Systems All other system reviewed and negative Physical Exam Vital Signs: Vital Signs: Last Vital Signs Temp 98.3 F 09/26/24 06:26 Pulse 83 09/26/24 06:26 Resp 17 09/26/24 06:26 BP 181/74 H 09/26/24 06:26 Pulse Ox 100 09/26/24 06:26 O2 Del Method Nasal Cannula 09/26/24 06:26 O2 Flow Rate 3 09/26/24 06:26 Oxygen Flow Rate 2 09/25/24 15:58 BMI result Body Mass Index 26.0 Const: Other: General resting comfortably in no acute distress. Neck supple no JVD. CVS regular rate rhythm, Respiratory lungs coarse bs , no respiratory distress, no rhonchi. Gastrointestinal abdomen soft, non tender, bowel sounds audible, no guarding , no rigidity. Extremities no edema. Neuro non focal Skin no rash Poor insight Objective Data Active Medications Acetaminophen (Acetaminophen 325 Mg Tablet) 975 mg PO Q6H PRN PRN Reason: Pain, Mild 1-3,fever,headache Last Admin: 09/26/24 00:18 Dose: 975 mg Documented By: JEFFERY Albuterol/Ipratropium (Albuterol/Iprat 2.5/0.5mg 3 Ml Ampul.Neb) 3 ml INHALE RQ4H WHILE AWAKE PRN PRN Reason: Shortness of Breath/Wheezing Last Admin: 09/26/24 01:23 Dose: 3 ml Documented By: REJI Aspirin (Aspirin Enteric Coated 81 Mg Tablet.Dr) 81 mg PO DAILY SARAH Calcium Carbonate (Calcium Carbonate 750 Mg Tab.Chew) 750 mg PO Q4H PRN PRN Reason: Heartburn Enoxaparin Sodium (Enoxaparin Sodium 40 Mg/0.4 Ml Syringe) 40 mg SUBCUT BEDTIME [facility] Last Admin: 09/25/24 23:54 Dose: Not Given Documented By: JEFFERY Non-Admin Reason: Physician Held Med Lisinopril (Lisinopril 5 Mg Tablet) 5 mg PO DAILY SARAH; Protocol Magnesium Hydroxide (Milk Of Magnesia 30 Ml Oral.Susp) 30 ml PO DAILY PRN PRN Reason: Constipation Melatonin (Melatonin 3 Mg Tablet) 6 mg PO BEDTIME PRN PRN Reason: Insomnia Multivitamins/Vitamin C (Multivitamin Tablet) 1 tab PO DAILY SARAH Ondansetron HCl (Ondansetron Hcl 4 Mg/2 Ml Vial) 4 mg IVPUSH Q8H PRN PRN Reason: Nausea and Vomiting Oseltamivir Phosphate (Oseltamivir Phosphate 30 Mg Capsule) 30 mg PO BID SARAH Stop: 09/30/24 21:01 Polyethylene Glycol (Polyethylene Glycol 3350 17 Gm Powd.Pack) 17 gm PO DAILY PRN PRN Reason: Constipation Sodium Chloride (0.9 % Sodium Chloride Flush 3 Ml Syringe) 3 ml IVFLUSH QSHIFT SARAH Last Admin: 09/26/24 02:56 Dose: Not Given Documented By: JEFFERY Non-Admin Reason: Previously Administered Labs 09/26/24 04:25 09/26/24 04:25 Labs: Laboratory Results - last 24 hr 09/25/24 09/25/24 09/25/24 16:47 16:57 19:24 MCV 81.9 MCH 24.4 L MCHC 29.8 L RDW 15.7 Plt Count 248 MPV 10.4 Immature Gran % (Auto) 0.3 Neut % (Auto) 81.8 H Lymph % (Auto) 8.7 L [place] % (Auto) 8.0 Eos % (Auto) 0.2 Baso % (Auto) 1.0 Lymph # (Auto) 0.5 L [place] # (Auto) 0.5 Eos # (Auto) 0.0 Baso # (Auto) 0.1 Abs Immat Gran (auto) 0.02 Absolute Neuts (auto) 4.9 Absolute Nucleated RBC 0.000 Nucleated RBC % (auto) 0.0 VBG pH 7.37 VBG pCO2 41 VBG pO2 41 VBG HCO3 24 VBG O2 Saturation 64.0 VBG Base Excess -0.4 Anion Gap 17 Estim Creat Clear Calc 33.8 Estimated GFR 50 Random Glucose 158 H Lactic Acid 1.9 Calcium 8.2 L D Magnesium 1.8 Iron 24 L TIBC 321 % Saturation 7 L Unsat Iron Binding 297 Total Bilirubin 0.4 AST 34 H ALT 16 Alkaline Phosphatase 63 B-Natriuretic Peptide 175 H Total Protein 6.7 Albumin 3.5 Urine Color Urine Appearance Urine pH Ur Specific [place] Urine Protein Urine Glucose (UA) Urine Ketones Urine Blood Urine Nitrite Ur Leukocyte Esterase Urine RBC Urine WBC Ur Squamous Epith Cells Urine Bacteria Hyaline Casts Stool Occult Blood NEGATIVE Influenza Type A (PCR) POSITIVE A Influenza Type B (PCR) NEGATIVE RSV RNA Qual (PCR) NEGATIVE SARS-CoV-2 RNA (RT-PCR) NEGATIVE Blood Type A Positive Antibody Screen NEGATIVE 09/25/24 09/26/24 20:29 04:25 MCV 83.3 MCH 24.0 L MCHC 28.8 L RDW 15.5 Plt Count 224 MPV 10.8 Immature Gran % (Auto) 0.8 H Neut % (Auto) 89.7 H Lymph % (Auto) 5.5 L [place] % (Auto) 3.8 Eos % (Auto) 0.0 Baso % (Auto) 0.2 Lymph # (Auto) 0.3 L [place] # (Auto) 0.2 Eos # (Auto) 0.0 Baso # (Auto) 0.0 Abs Immat Gran (auto) 0.04 H Absolute Neuts (auto) 4.8 Absolute Nucleated RBC 0.000 Nucleated RBC % (auto) 0.0 VBG pH VBG pCO2 VBG pO2 VBG HCO3 VBG O2 Saturation VBG Base Excess Anion Gap 16 Estim Creat Clear Calc 33.2 Estimated GFR 49 Random Glucose 289 H Lactic Acid Calcium 8.5 Magnesium Iron TIBC % Saturation Unsat Iron Binding Total Bilirubin AST ALT Alkaline Phosphatase B-Natriuretic Peptide Total Protein Albumin Urine Color Yellow Urine Appearance Clear Urine pH 5.0 Ur Specific [place] 1.025 Urine Protein 30 (1+) H Urine Glucose (UA) Negative Urine Ketones 15 Urine Blood Negative Urine Nitrite Negative Ur Leukocyte Esterase Negative Urine RBC 0-2 Urine WBC 0-5 Ur Squamous Epith Cells 0-2 Urine Bacteria None Seen Hyaline Casts 3-5 Stool Occult Blood Influenza Type A (PCR) Influenza Type B (PCR) RSV RNA Qual (PCR) SARS-CoV-2 RNA (RT-PCR) Blood Type Antibody Screen Assessment and Plan (1) Metabolic encephalopathy: Status: Acute (2) Influenza: Status: Acute (3) Sepsis: Status: Acute Plan 84-year-old female with a past medical history significant for memory issues, hypertension, osteoarthritis and hyperlipidemia, who presented to the ED due to altered mental status, weakness, abdominal cramping and labored breathing. Workup significant for tachycardia and tachypnea, flu A positive, anemia. Sepsis secondary to influenza A with acute toxic metabolic encephalopathy. - WBC normal, lactic acid normal, tachycardic and tachypneic, blood cultures x2 pending, - chest x-ray negative - abdominopelvic CT negative - Status post 1 L of IV fluid continue Tamiflu, DuoNeb q.4 hours as needed,cough syp prn - C diff and GI panel un collected since no recurrent diarrhea - monitor CBC and BMP - mild confusion likely chronic Iron-deficiency anemia, likely contributing to weakness - hemoglobin 8.1, hematocrit 27.2 on admission, hematocrit dropped to 26.4 and hemoglobin 7.6 question delusional, will order hemolytic work up - will transfuse 1 unit of packed RBC, and start ferrous sulfate 1 tablet daily, concern obtain through daughter - fecal occult blood test negative - spoke with GI they recommend outpatient workup Hypertension - continue lisinopril 5 mg daily, hold aspirin due to anemia DNR/DNI VTE prophylaxis: pneumoboots due to severe anemia Patient with sepsis secondary to influenza A complicated by metabolic encephalopathy and iron-deficiency anemia, therefore will require continued inpatient hospitalization for blood transfusion and expert consultation . Quality Stroke Does the patient have a stroke diagnosis?: No VTE Prior VTE?: No VTE Risk Level:: Medical - moderate - high VTE Device Contraindication: Treatment Not Indicated VTE Drug Contraindication: N/A - Med Ordered
[2024-09-26] MEDS: lisinopriL 5 MG TABLET PO (08:27)
[2024-09-26] MEDS: Multivitamin TABLET 1 TAB PO (08:27)
[2024-09-26] MEDS: Aspirin Enteric Coated 81 MG TABLET.DR PO (08:28)
[2024-09-26] MEDS: 0.9 % Sodium Chloride Flush 3 ML SYRINGE IVFLUSH ×2 (08:28→20:01)
[2024-09-26] MEDS: Oseltamivir Phosphate 30 MG CAPSULE PO ×2 (08:28→20:04)
--- NOTE | 2024-09-26 09:00 | MHC.EDTECH ---
patient was incontinent patient is a total assit changed and clean patient place a new purewick nurse aware
--- NOTE | 2024-09-26 09:25 | P.CNGI_ITS ---
History of Present Illness Data of Consult Service Date: 09/26/24 Requesting physician: Cielo Bobo Primary Care Provider: Mary Bustos MD HPI Reason for consult: anemia 84-year-old female with hx of hypertension, osteoarthritis and hyperlipidemia, who I am seeing for assessment of anemia. Minimal hx from patient due to confusion. Hx from the chart She apparently presented with general malaise, AMS and cramps with SOB and cough. unknown if any melena, rectal bleeding, hemturia, or nose bleeds. she is on aspirin but no other nsaids. she was subsequently found to have influenza A, also with iron def anemia on labs. HGB 8--last HGB 5 yrs aok was normal Review of Systems 2 Review of Systems: Yes Unobtainable due to mental status PMFSH Past Medical History Medical History Memory change History of dysfunctional uterine bleeding Osteopenia Osteoarthritis involving multiple joints on both sides of body History of rib fracture Impaired fasting glucose Dyslipidemia Essential hypertension Family History Family History Father Diabetes mellitus Mother Breast cancer Surgical History Surgical History S/P JEOVANY-BSO Social History Social History Household Members: Family Housing: House Do you presently have visiting nurse or other home services: No Alcohol intake: never Patient Tobacco Use Status: Former Tobacco user Smoked in Last 30 Days: No e-Cigarette/Vaping Use: Never Used Patient Interested in Nicotine Replacement: No Patient Given Instructions on How to Stop Smoking: No Second Hand Smoke Exposure: No Use of substances other than those prescribed or required for medical reasons: No Currently Displaying Signs/Symptoms of Drug Intoxication Withdrawal: No Any prior treatment program specific to substance use: No Have you been hit, kicked, punched, or otherwise hurt by someone within the past year? If so, by whom?: No Do you feel safe in your current relationship?: No Current Relationship Is there a partner from a previous relationship who is making you feel unsafe now?: No Are you made to feel afraid or neglected: No Spiritual Healthcare Practices: taoism Advance Directives: Yes Advance Directives on File: Yes Advance Directives Date on File: 12/05/23 Do you have a plan to hurt others: No Plan Recently lost weight without trying: No Eating poorly because of decreased appetite: No Nutrition Risks: No Nutritional Risk Patient : No : No Poor oral hygiene: No service: No Current occupational status: retired Cognitive needs: No Hearing needs: No Vision needs: Yes Meds Allergies Allergy/AdvReac Type Severity Reaction Status Date / Time No Known Allergies Allergy Verified 09/25/24 16:01 [No Known Allergies*] Active Medications: Current Medications Acetaminophen (Acetaminophen 325 Mg Tablet) 975 mg PO Q6H PRN PRN Reason: Pain, Mild 1-3,fever,headache Last Admin: 09/26/24 00:18 Dose: 975 mg Albuterol/Ipratropium (Albuterol/Iprat 2.5/0.5mg 3 Ml Ampul.Neb) 3 ml INHALE RQ4H WHILE AWAKE PRN PRN Reason: Shortness of Breath/Wheezing Last Admin: 09/26/24 01:23 Dose: 3 ml Aspirin (Aspirin Enteric Coated 81 Mg Tablet.Dr) 81 mg PO DAILY [facility] Last Admin: 09/26/24 08:28 Dose: 81 mg Calcium Carbonate (Calcium Carbonate 750 Mg Tab.Chew) 750 mg PO Q4H PRN PRN Reason: Heartburn Enoxaparin Sodium (Enoxaparin Sodium 40 Mg/0.4 Ml Syringe) 40 mg SUBCUT BEDTIME [facility] Last Admin: 09/25/24 23:54 Dose: Not Given Lisinopril (Lisinopril 5 Mg Tablet) 5 mg PO DAILY [facility]; Protocol Last Admin: 09/26/24 08:27 Dose: 5 mg Magnesium Hydroxide (Milk Of Magnesia 30 Ml Oral.Susp) 30 ml PO DAILY PRN PRN Reason: Constipation Melatonin (Melatonin 3 Mg Tablet) 6 mg PO BEDTIME PRN PRN Reason: Insomnia Multivitamins/Vitamin C (Multivitamin Tablet) 1 tab PO DAILY [facility] Last Admin: 09/26/24 08:27 Dose: 1 tab Ondansetron HCl (Ondansetron Hcl 4 Mg/2 Ml Vial) 4 mg IVPUSH Q8H PRN PRN Reason: Nausea and Vomiting Oseltamivir Phosphate (Oseltamivir Phosphate 30 Mg Capsule) 30 mg PO BID [facility] Stop: 09/30/24 21:01 Last Admin: 09/26/24 08:28 Dose: 30 mg Polyethylene Glycol (Polyethylene Glycol 3350 17 Gm Powd.Pack) 17 gm PO DAILY PRN PRN Reason: Constipation Sodium Chloride (0.9 % Sodium Chloride Flush 3 Ml Syringe) 3 ml IVFLUSH QSHIFT [facility] Last Admin: 09/26/24 08:28 Dose: 3 ml Home Medications ?Medication ?Instructions ?Recorded ?Confirmed ?Last Taken ?Type aspirin 81 mg tablet,delayed 81 mg PO DAILY 11/14/20 09/25/24 09/24/24 History release (Adult Low Dose Aspirin) multivitamin 1 tab PO DAILY 11/14/20 09/25/24 09/24/24 History dupilumab 300 mg/2 mL subcutaneous 300 mg subcut Q2W 07/29/22 09/25/24 09/20/24 History pen injector (Dupixent) Physical Exam 2 Vital Signs: Vital Signs: Last Vital Signs Temp 98.3 F 09/26/24 06:26 Pulse 83 09/26/24 06:26 Resp 17 09/26/24 06:26 BP 181/74 H 09/26/24 08:27 Pulse Ox 100 09/26/24 06:26 O2 Del Method Nasal Cannula 09/26/24 06:26 O2 Flow Rate 3 09/26/24 06:26 Oxygen Flow Rate 2 09/25/24 15:58 BMI result Body Mass Index 26.0 EXAM: GENERAL: The patient is frail, confused VITAL SIGNS:see workflow HEENT: Nonicteric sclerae, PERRLA, EOMI. Oropharynx clear. Moist mucous membranes. Conjunctivae appear well perfused. No thyroid mass. CHEST: Chest wall is nontender. HEART: Regular rate and rhythm without murmurs. LUNGS: Clear to auscultation bilaterally. ABDOMEN: Soft, positive bowel sounds, nontender, no organomegaly.no flank tenderness SKIN: No rash, no excessive bruising, petechiae, or purpura. NEUROLOGIC: Cranial nerves II-XII intact without motor/sensory deficit. Psych: confused and disorientated to place and time Results Labs 09/26/24 04:25 09/26/24 04:25 Labs: Short CBC 09/25/24 09/26/24 Range/Units 16:47 04:25 WBC 6.0 5.3 (4.8-10.8) X10*3/uL Hgb 8.1 L 7.6 L (12.0-16.0) g/dl Hct 27.2 L 26.4 L (37.0-47.0) % Plt Count 248 224 (160-400) X10*3/uL BMP 09/25/24 09/26/24 16:47 04:25 Sodium 144 141 Potassium 4.2 4.5 Chloride 109 H 113 H Carbon Dioxide 22 17 L BUN 22 H 30 H Creatinine 1.05 1.07 Calcium 8.2 L D 8.5 Liver Function 09/25/24 Range/Units 16:47 Total Bilirubin 0.4 (0.0-1.0) mg/dL AST 34 H (5-31) U/L ALT 16 (0-31) U/L Alkaline Phosphatase 63 (39-117) U/L Albumin 3.5 (3.5-5.0) g/dL Urine 09/25/24 Range/Units 20:29 Urine Color Yellow Urine Appearance Clear Urine pH 5.0 (5.0-9.0) Ur Specific [place] 1.025 (1.005-1.025) Urine Protein 30 (1+) H (Neg-Trace) mg/dL Urine Glucose (UA) Negative (Negative) mg/dL Imaging CT scan - abdomen: Attestation: I personally reviewed and interpreted this imaging study as follows: (hiatal hernia, atherosclerosis, no masses seen) Assessment and Plan (1) Iron deficiency anemia: Qualifiers: Iron deficiency anemia type: unspecified iron deficiency Qualified Code(s): D50.9 - Iron deficiency anemia, unspecified Status: Acute Plan 1/ Iron def anemia -no overt IB at this time, likely a low level bleed given the low iron levels, also on aspirin PLAN: 1/ Await resolution of influena 2/ transfuse HGB target 8-9 g/dl 3/ egd, colo at future date, either pre d/c or early o/p unless evidence of active bleeding 4/ commence PPI 5/ check h pylori Procedures Date of Service Date of Service: 09/26/24
[2024-09-26 11:01] LABS: Haptoglobin 196 mg/dL (63-273)
[2024-09-26 11:03] LABS: Immature Retic Fraction 23.8 % (3.0-15.9); Retic HGB Equivalent 22.3 pg (30.0-35.0); Reticulocyte Percent 1.5 % (0.5-1.8); Reticulocytes Absolute 0.049 X10*6/uL (0.026-0.095)
[2024-09-26 11:04] LABS: Lactate Dehydrogenase 170 U/L (122-220)
--- NOTE | 2024-09-26 14:00 | MHC.EDTECH ---
patient was incontinent changed patient Put new pure wick
--- NOTE | 2024-09-26 14:29 | MHC.CM.PN ---
PT S SON LIVES WITH PT AND IS ASSISTED BY FAMILY MEMBERS THRU OUT THE DAY PT HAS SERVICES FROM [facility] 2 X A WEEK,PT HAS OWN RIDE HOME DC PLAN HOME NO SERVICES
--- NOTE | 2024-09-26 18:30 | MHC.EDTECH ---
reposition patient. Patient was incontinent changed patient put new purewick as well as set up for dinner nurse aware
--- NOTE | 2024-09-26 20:56 | PC.NURSE ---
Patient admitted to s3 from ED just before 20:00 this evening. Patient is A&Ox3, stated I don't care when asked to state the year or month. Reoriented. Patient hypertensive on admit, confirmed with manual. Pt denies symptoms. Lisinopril noted in OCT. Patient also with visible increased work of breathing/BLISS. Lungs wheezy throughout. Patient denies trouble breathing on assessment. Spo2 98& on 1L nc as on arrival. +Flu, on droplet precautions and tamiflu per OCT. Respiratory requested to bedside for prn treatment. Covering Dr. Eli notified of BP and WOB. Advised continued with prn MD melo order for Lisinopril, awaiting pharmacy verification at this time. Call cardoza within reach and educated on use. Bed alarm on and safety measures in place. Plan of care continues.
[2024-09-26] MEDS: lisinopriL 20 MG TABLET PO (21:06)
[2024-09-27] VITALS (10 sets, daily range): BP systolic 126–184; BP diastolic 58–76; PULSE 67–90; RESP 18–28; TEMP 36.4–37.7; O2SAT 95–99
[2024-09-27 06:25] LABS: Anion Gap 11 (12-20); Blood Urea Nitrogen 23 mg/dL (9-16); Calcium 8.7 mg/dL (8.4-10.2); Carbon Dioxide 20 mmol/L (22-29); Chloride 115 mmol/L (96-108); Creatinine Clr Calc Pharmacy 45.8; Estimated Glomerular Filt Rate > 60; Glucose Random 110 mg/dL (60-115); Potassium 4.1 mmol/L (3.3-5.1); Sodium 142 mmol/L (135-145)
[2024-09-27 06:34] LABS: Hemoglobin 9.3 g/dl (12.0-16.0); Mean Corpuscular Hemoglobin 25.2 pg (27.0-33.0); Mean Corpuscular Volume 81.3 fL (80.0-98.0); PLT CLUMP 1; Red Blood Count 3.69 X10*6/uL (4.20-5.50); Red Cell Distribution Width 15.5 % (11.0-16.0)
[2024-09-27] MEDS: Albuterol/Iprat 2.5/0.5MG 3 ML AMPUL.NEB INHALE ×2 (07:21→20:47)
--- NOTE | 2024-09-27 08:13 | PC.NURSE ---
pt primary rn req assistance with new IV, pt refusing, Primary rn notifed.
[2024-09-27 08:37] LABS: Mean Platelet Volume 11.3 fL (9.4-12.3); Platelet Count 208 X10*3/uL (160-400); White Blood Count 9.7 X10*3/uL (4.8-10.8)
[2024-09-27] MEDS: lisinopriL 20 MG TABLET PO (09:02)
[2024-09-27] MEDS: Oseltamivir Phosphate 30 MG CAPSULE PO ×2 (09:02→20:35)
[2024-09-27] MEDS: Multivitamin TABLET 1 TAB PO (09:03)
[2024-09-27] MEDS: Ferrous Sulfate 324 MG TABLET.DR PO (09:03)
[2024-09-27] MEDS: predniSONE 20 MG TABLET PO (11:37)
[2024-09-27] MEDS: Omeprazole 20 MG CAPSULE.DR PO (11:37)
--- NOTE | 2024-09-27 16:48 | PC.NURSE ---
Patient refusing new IV access placement. FROYLAN Adames aware. Patient educated on importance of IV access. Verbalized understanding. Continues to refuse new placement at this time. No access at this time.
--- NOTE | 2024-09-27 16:54 | P.PNIM_ITS ---
Subjective Subjective Date of Service: 09/27/24 Interval History: seen and examined this morning follow up for respiratory failure due to influenza breathing improving slowly, still having shortness of breath Review of Systems Review of Systems: Yes all other systems are reviewed and are negative Constitutional Constitutional: Denies chills and Denies fever(s) Physical Exam 2 Vital Signs: Vital Signs: Last Vital Signs Temp 97.6 F 09/27/24 15:37 Pulse 90 09/27/24 15:37 Resp 20 09/27/24 15:37 BP 172/76 H 09/27/24 15:37 Pulse Ox 96 09/27/24 15:37 O2 Del Method Room Air 09/27/24 15:37 O2 Flow Rate 2 09/27/24 07:11 Oxygen Flow Rate 2 09/25/24 15:58 BMI result Body Mass Index 24.8 Const: General: alert and awake Nutritional Appearance: average body habitus Resp: Other: mild dysnea; scattered wheeze Effort & Inspection: normal respiratory effort and able to speak in complete sentences Cardio: Rate: regular rate GI: Palpation (GI): Soft to palpation and nontender Neuro: Other: grossly nonfocal Objective Data Active Medications Acetaminophen (Acetaminophen 325 Mg Tablet) 975 mg PO Q6H PRN PRN Reason: Pain, Mild 1-3,fever,headache Last Admin: 09/26/24 00:18 Dose: 975 mg Documented By: JEFFERY Albuterol/Ipratropium (Albuterol/Iprat 2.5/0.5mg 3 Ml Ampul.Neb) 3 ml INHALE RQ4H WHILE AWAKE PRN PRN Reason: Shortness of Breath/Wheezing Last Admin: 09/27/24 07:21 Dose: 3 ml Documented By: LYUBOV Calcium Carbonate (Calcium Carbonate 750 Mg Tab.Chew) 750 mg PO Q4H PRN PRN Reason: Heartburn Ferrous Sulfate (Ferrous Sulfate 324 Mg Tablet.Dr) 324 mg PO DAILY [facility] Last Admin: 09/27/24 09:03 Dose: 324 mg Documented By: LYUBOV Guaifenesin/Dextromethorphan (Guaifenesin Dm 100/10/5 Ml 5 Ml Syrup) 10 ml PO Q6H PRN PRN Reason: Cough Lisinopril (Lisinopril 20 Mg Tablet) 20 mg PO DAILY [facility]; Protocol Last Admin: 09/27/24 09:02 Dose: 20 mg Documented By: LYUBOV Magnesium Hydroxide (Milk Of Magnesia 30 Ml Oral.Susp) 30 ml PO DAILY PRN PRN Reason: Constipation Melatonin (Melatonin 3 Mg Tablet) 6 mg PO BEDTIME PRN PRN Reason: Insomnia Multivitamins/Vitamin C (Multivitamin Tablet) 1 tab PO DAILY [facility] Last Admin: 09/27/24 09:03 Dose: 1 tab Documented By: LYUBOV Omeprazole (Omeprazole 20 Mg Capsule.Dr) 20 mg PO DAILY@0630 [facility] Last Admin: 09/27/24 11:37 Dose: 20 mg Documented By: LYUBOV Ondansetron HCl (Ondansetron Hcl 4 Mg/2 Ml Vial) 4 mg IVPUSH Q8H PRN PRN Reason: Nausea and Vomiting Oseltamivir Phosphate (Oseltamivir Phosphate 30 Mg Capsule) 30 mg PO BID [facility] Stop: 09/30/24 21:01 Last Admin: 09/27/24 09:02 Dose: 30 mg Documented By: LYUBOV Polyethylene Glycol (Polyethylene Glycol 3350 17 Gm Powd.Pack) 17 gm PO DAILY PRN PRN Reason: Constipation Prednisone (Prednisone 20 Mg Tablet) 20 mg PO DAILY [facility] Last Admin: 09/27/24 11:37 Dose: 20 mg Documented By: LYUBOV Sodium Chloride (0.9 % Sodium Chloride Flush 3 Ml Syringe) 3 ml IVFLUSH QSHIFT [facility] Last Admin: 09/27/24 16:47 Dose: Not Given Documented By: LYUBOV Non-Admin Reason: No Access Labs 09/27/24 05:40 09/27/24 05:40 Labs: Laboratory Results - last 24 hr 09/25/24 09/27/24 19:24 05:40 MCV 81.3 MCH 25.2 L MCHC 31.0 RDW 15.5 Plt Count 208 MPV 11.3 Absolute Nucleated RBC 0.000 Nucleated RBC % (auto) 0.0 Anion Gap 11 L Estim Creat Clear Calc 45.8 Estimated GFR > 60 Random Glucose 110 Calcium 8.7 Crossmatch See Detail Microbiology Microbiology Results: Microbiology 09/25/24 19:24 Blood Culture - Preliminary Blood - Venous No growth after 24 hours. 09/25/24 16:47 Blood Culture - Preliminary Blood - Venous No growth after 24 hours. Assessment and Plan (1) Iron deficiency anemia: Status: Acute (2) Metabolic encephalopathy: Status: Acute (3) Influenza: Status: Acute Plan This is an 84-year-old female with a past medical history significant for memory issues, hypertension, osteoarthritis and hyperlipidemia, who presented to the ED due to altered mental status, weakness, abdominal cramping and labored breathing. Workup significant for tachycardia and tachypnea, flu A positive, anemia. VIral Sepsis secondary to influenza A with acute toxic metabolic encephalopathy - WBC normal, lactic acid normal, tachycardic and tachypneic, blood cultures x2 pending - chest x-ray negative - abdominopelvic CT negative - continue Tamiflu, DuoNeb q.4 hours as needed,cough syp prn - C diff and GI panel un collected since no recurrent diarrhea wean oxygen as tolerated Iron-deficiency anemia, likely contributing to weakness - hemoglobin 8.1, hematocrit 27.2 on admission, hematocrit dropped to 26.4 and hemoglobin 7.6 question delusional - will transfuse 1 unit of packed RBC, and start ferrous sulfate 1 tablet daily, consent obtain through daughter - fecal occult blood test negative - spoke with GI they recommend outpatient workup Hypertension - bp elevated, lisinopril increased to 20 mg dialy hold aspirin due to anemia DNR/DNI VTE prophylaxis: pneumoboots due to severe anemia Patient with sepsis secondary to influenza A complicated by metabolic encephalopathy and iron-deficiency anemia, therefore will require continued inpatient hospitalization for blood transfusion Quality Stroke Does the patient have a stroke diagnosis?: No VTE Prior VTE?: No VTE Risk Level:: Medical - moderate - high VTE Device Contraindication: Treatment Not Indicated VTE Drug Contraindication: N/A - Med Ordered
--- NOTE | 2024-09-27 23:13 | PC.NURSE ---
A&Ox2. Disoriented to time and place. Has hx of memory changes per pmhx review. Reoriented. In-room camera in place in addition to high falls safety measures. Pt is emotionally labile. Initially yelling/swearing at staff when attempted to obtain vitals and assess pt this evening. Pt later pleasant and agreeable to manual BP for HTN earlier this evening.? Pt continues to refuse IV access replacement despite attempts to educate, pt stated ?I don?t need it. I?m getting better?. aware. Pt alslo resistive to repositioning for designer writer. Purewick placed for incontinence. Call cardoza within reach and educated on use. Please see designer writer?s shift assessment, tasks in worklist, and MAR for full details. Handoff report given to oncoming RN. ? ?
[2024-09-28] VITALS (7 sets, daily range): BP systolic 115–154; BP diastolic 56–73; PULSE 72–87; RESP 17–26; TEMP 36.5–37.1; O2SAT 94–97
[2024-09-28] MEDS: Omeprazole 20 MG CAPSULE.DR PO (06:03)
[2024-09-28 06:10] LABS: Anion Gap 11 (12-20); Blood Urea Nitrogen 19 mg/dL (9-16); Calcium 9.1 mg/dL (8.4-10.2); Carbon Dioxide 22 mmol/L (22-29); Chloride 113 mmol/L (96-108); Creatinine Clr Calc Pharmacy 45.8; Estimated Glomerular Filt Rate > 60; Glucose Random 106 mg/dL (60-115); Potassium 3.9 mmol/L (3.3-5.1); Sodium 142 mmol/L (135-145)
[2024-09-28] MEDS: Ferrous Sulfate 324 MG TABLET.DR PO (08:55)
[2024-09-28] MEDS: Oseltamivir Phosphate 30 MG CAPSULE PO ×2 (08:55→20:58)
[2024-09-28] MEDS: predniSONE 20 MG TABLET PO (08:56)
[2024-09-28] MEDS: lisinopriL 20 MG TABLET PO (08:56)
[2024-09-28] MEDS: Multivitamin TABLET 1 TAB PO (08:56)
--- NOTE | 2024-09-28 14:46 | MHC.CM.PN ---
PTS SON PRESENT AND REQUESTING TO SPEAK TO CM HE REPORTS PT HAS ALMOST 24/7 CARE BUT THERE ARE TIMES WHEN SHE IS ALONE HE REPORTS THEY WOULD PREFER PT GO TO STR TO REGAIN OPTIMAL FUNCTIONING PT IS AGREEABLE TO STR PT / FAMILY REQUEST REFERRALS BE MADE LOCALLY TO [facility] WHO HAS A BED ONCE BED OFFERS ARE RECEIVED, CM WILL CONTACT THEM FOR PREFERRED SNF
--- NOTE | 2024-09-28 14:52 | MHC.CM.PN ---
pt and family have agreed to str referraals made
--- NOTE | 2024-09-28 15:04 | HO.PM.IMPN ---
Subjective Subjective Date of Service: 09/28/24 Interval History: seen and examined this morning follow up for flu a breathing better, off o2 still dyspnic with exertion Review of Systems Review of Systems: Yes all other systems are reviewed and are negative Constitutional Constitutional: Denies chills and Denies fever(s) Physical Exam Vital Signs: Vital Signs: Last Vital Signs Temp 97.9 F 09/28/24 11:30 Pulse 72 09/28/24 11:30 Resp 17 09/28/24 11:30 BP 115/56 L 09/28/24 11:30 Pulse Ox 97 09/28/24 11:30 O2 Del Method Room Air 09/28/24 11:30 O2 Flow Rate 2 09/27/24 07:11 Oxygen Flow Rate 2 09/25/24 15:58 BMI result Body Mass Index 24.8 Const: General: alert and awake Nutritional Appearance: average body habitus Resp: Other: mild dysnea; scattered wheeze Effort & Inspection: normal respiratory effort and able to speak in complete sentences Cardio: Rate: regular rate GI: Palpation (GI): Soft to palpation and nontender Neuro: Other: grossly nonfocal Objective Data Active Medications Acetaminophen (Acetaminophen 325 Mg Tablet) 975 mg PO Q6H PRN PRN Reason: Pain, Mild 1-3,fever,headache Last Admin: 09/26/24 00:18 Dose: 975 mg Documented By: JEFFERY Albuterol/Ipratropium (Albuterol/Iprat 2.5/0.5mg 3 Ml Ampul.Neb) 3 ml INHALE RQ4H WHILE AWAKE PRN PRN Reason: Shortness of Breath/Wheezing Last Admin: 09/27/24 20:47 Dose: 3 ml Documented By: MACIE Calcium Carbonate (Calcium Carbonate 750 Mg Tab.Chew) 750 mg PO Q4H PRN PRN Reason: Heartburn Ferrous Sulfate (Ferrous Sulfate 324 Mg Tablet.Dr) 324 mg PO DAILY [facility] Last Admin: 09/28/24 08:55 Dose: 324 mg Documented By: ERICK Guaifenesin/Dextromethorphan (Guaifenesin Dm 100/10/5 Ml 5 Ml Syrup) 10 ml PO Q6H PRN PRN Reason: Cough Lisinopril (Lisinopril 20 Mg Tablet) 20 mg PO DAILY [facility]; Protocol Last Admin: 09/28/24 08:56 Dose: 20 mg Documented By: ERICK Magnesium Hydroxide (Milk Of Magnesia 30 Ml Oral.Susp) 30 ml PO DAILY PRN PRN Reason: Constipation Melatonin (Melatonin 3 Mg Tablet) 6 mg PO BEDTIME PRN PRN Reason: Insomnia Multivitamins/Vitamin C (Multivitamin Tablet) 1 tab PO DAILY [facility] Last Admin: 09/28/24 08:56 Dose: 1 tab Documented By: ERICK Omeprazole (Omeprazole 20 Mg Capsule.) 20 mg PO DAILY@0630 [facility] Last Admin: 09/28/24 06:03 Dose: 20 mg Documented By: ODRISKevin Ondansetron HCl (Ondansetron Hcl 4 Mg/2 Ml Vial) 4 mg IVPUSH Q8H PRN PRN Reason: Nausea and Vomiting Oseltamivir Phosphate (Oseltamivir Phosphate 30 Mg Capsule) 30 mg PO BID [facility] Stop: 09/30/24 21:01 Last Admin: 09/28/24 08:55 Dose: 30 mg Documented By: ERICK Polyethylene Glycol (Polyethylene Glycol 3350 17 Gm Powd.Pack) 17 gm PO DAILY PRN PRN Reason: Constipation Prednisone (Prednisone 20 Mg Tablet) 20 mg PO DAILY [facility] Last Admin: 09/28/24 08:56 Dose: 20 mg Documented By: ERICK Sodium Chloride (0.9 % Sodium Chloride Flush 3 Ml Syringe) 3 ml IVFLUSH QSHIFT [facility] Last Admin: 09/28/24 08:58 Dose: Not Given Documented By: ERICK Non-Admin Reason: No Access Labs 09/27/24 05:40 09/28/24 05:47 Labs: Laboratory Results - last 24 hr 09/25/24 09/28/24 19:24 05:47 Anion Gap 11 L Estim Creat Clear Calc 45.8 Estimated GFR > 60 Random Glucose 106 Calcium 9.1 Crossmatch See Detail Microbiology Microbiology Results: Microbiology 09/25/24 19:24 Blood Culture - Preliminary Blood - Venous No growth after 48 hours. 09/25/24 16:47 Blood Culture - Preliminary Blood - Venous No growth after 48 hours. Assessment and Plan (1) Influenza: Status: Acute Plan This is an 84-year-old female with a past medical history significant for memory issues, hypertension, osteoarthritis and hyperlipidemia, who presented to the ED due to altered mental status, weakness, abdominal cramping and labored breathing. Workup significant for tachycardia and tachypnea, flu A positive, anemia. Viral Sepsis secondary to influenza A chest x-ray negative continue Tamiflu, DuoNeb q.4 hours as needed, cough syrup prn on room air Acute toxic metabolic encephalopathy Due to above Resolved Iron-deficiency anemia, likely contributing to weakness hemoglobin 8.1, hematocrit 27.2 on admission, hematocrit dropped to 26.4 and hemoglobin 7.6 question delusional s/p 1 unit of packed RBC, and start ferrous sulfate 1 tablet daily GI they recommend outpatient workup Hypertension bp elevated, lisinopril increased to 20 mg daily hold aspirin due to anemia DNR/DNI VTE prophylaxis: pneumoboots due to severe anemia dispo: PT rec STR Patient with sepsis secondary to influenza A complicated by metabolic encephalopathy and iron-deficiency anemia, therefore will require continued inpatient hospitalization for blood transfusion Quality Stroke Does the patient have a stroke diagnosis?: No VTE Prior VTE?: No VTE Risk Level:: Medical - moderate - high VTE Device Contraindication: Treatment Not Indicated VTE Drug Contraindication: N/A - Med Ordered
[2024-09-28] MEDS: Albuterol/Iprat 2.5/0.5MG 3 ML AMPUL.NEB INHALE (15:34)
[2024-09-29] VITALS (10 sets, daily range): BP systolic 151–195; BP diastolic 62–92; PULSE 73–94; RESP 15–16; TEMP 36.2–36.3; O2SAT 91–96
[2024-09-29] MEDS: Omeprazole 20 MG CAPSULE.DR PO (05:41)
[2024-09-29] MEDS: Ferrous Sulfate 324 MG TABLET.DR PO (09:09)
[2024-09-29] MEDS: lisinopriL 20 MG TABLET PO (09:09)
[2024-09-29] MEDS: Multivitamin TABLET 1 TAB PO (09:09)
[2024-09-29] MEDS: Oseltamivir Phosphate 30 MG CAPSULE PO ×2 (09:09→20:30)
[2024-09-29] MEDS: predniSONE 20 MG TABLET PO (09:10)
--- NOTE | 2024-09-29 09:48 | PC.NURSE ---
pt has a nose bleed ,removed pressure drsg placed in right nostril by [employer] was saturated with blood ,new drsg placed in,FROYLAN Thao notified
--- NOTE | 2024-09-29 11:45 | P.DS_ITS ---
DS: Providers Provider Date of Service: 09/29/24 Date of admission: 09/25/24 23:10 Date of discharge: 09/29/24 Primary care physician: Mary Bustos MD Consults: 09/25/24 23:08 Consult to Gastroenterology Routine Consulting Provider: Anders Jones Reason for consultation: MERLIN Has provider been notified: No Attending physician on discharge: Gregg Castro Discharging clinician: Keesha Adames DS: Diagnosis Discharge Diagnosis (1) Influenza: Status: Acute DS: Summary Hospital Course Hospital Course: From H&P on the day of admission Patient is an 84-year-old female with a past medical history significant for memory issues, hypertension, osteoarthritis and hyperlipidemia, who presented to the ED due to altered mental status, weakness, abdominal cramping and labored breathing. She reported loose stools 3 to 4 times a day for the past few weeks without any blood or melena. She denies any recent antibiotics or travel. She has also had a dry nonproductive cough and denies any nausea, vomiting, runny nose or congestion. She also denies any body aches headaches or URI symptoms. Her daughter reports that she does have wheezing when she exerts herself. Viral Sepsis secondary to influenza A chest x-ray negative for pneumonia. was treated with Tamiflu, DuoNeb q.4 hours as needed and low dose prednisone. cough syrup prn. her breathing has improved significantly and she has been off oxygen since 09/27. she still has some weakness but no hypoxia with walking. She denies shortness of breath and states that she feels fine. Physical therapy evaluated her and recommended short-term rehab, initially the patient was agreeable to rehab but now she has reconsidered and is requesting to be discharged home. Her son is in agreement with discharge home with VNA services and states that there will always be someone to stay with her. Acute toxic metabolic encephalopathy Due to above. Resolved. Appears to be at her baseline. Iron-deficiency anemia, likely contributing to weakness hemoglobin 8.1, hematocrit 27.2 on admission, hematocrit dropped to 26.4 and hemoglobin 7.6 question delusional. s/p 1 unit of packed RBC, and start ferrous sulfate 1 tablet daily. see by GI, recommend outpatient workup Hypertension bp elevated, lisinopril increased to 20 mg daily. bp still with intermittent high readings, but due to age will not add additional agent at this time to prevent hypotension. will be discharged home with vna services for close monitoring of blood pressure. recommend outpatient follow up with PCP repeat BMP in one week Time Attestation Discharge Coordination Time (in mins): 35 Quality: Safe Use of Opioids Does Pt have an Active Cancer Diagnosis on the Problem List?: No Quality: Stroke Does the patient have a stroke diagnosis?: No Physical Exam Vital Signs: Vital Signs: Last Vital Signs Temp 97.1 F 09/29/24 11:30 Pulse 78 09/29/24 11:30 Resp 16 09/29/24 11:30 BP 185/70 H 09/29/24 11:30 Pulse Ox 96 09/29/24 11:30 O2 Del Method Room Air 09/29/24 11:30 O2 Flow Rate 2 09/27/24 07:11 Oxygen Flow Rate 2 09/25/24 15:58 BMI result Body Mass Index 24.8 Const: General: alert and awake Nutritional Appearance: average body habitus Resp: Other: comfortable at rest, some dyspnea with ambulation but not hypoxia Effort & Inspection: able to speak in complete sentences Cardio: Rate: regular rate GI: Palpation (GI): nontender Neuro: Other: grossly nonfocal DS: Data Data Completed and Pending Labs on day of discharge: Preliminary micro results at discharge 09/25/24 19:24 Blood Culture - Preliminary Blood - Venous No growth after 48 hours. 09/25/24 16:47 Blood Culture - Preliminary Blood - Venous No growth after 48 hours. Discharge Plan Discharge Anticipated Discharge Date/Time: 09/30/24 11:47 Patient Disposition: Home Health Service Discharge Diagnosis: influenza a respiratory failure iron deficiency anemia HTN Referrals: [facility] [Outside] - 3-5 Days ([facility] will call you to schedule home physical therapy appointments) Mary Bustos MD [Primary Care Provider] - 1 Week Anders Jones MD [Physician] - 1 Week Discharge Medications: New ferrous sulfate 324 mg (65 mg iron) Tablet,Delayed Release (Dr/Ec) 324 mg PO DAILY Qty: 90 0RF omeprazole 20 mg Capsule,Delayed Release(Dr/Ec) 20 mg PO DAILY@0630 90 Days Qty: 90 0RF Continued multivitamin Tablet 1 tab PO DAILY Dupixent Pen 300 mg/2 mL pen injector 300 mg subcut Q2W Held aspirin [Adult Low Dose Aspirin] 81 mg tablet,delayed release (DR/EC) 81 mg PO DAILY Hold Instructions: hold until follow up with GI Discontinued lisinopril 5 mg tablet 5 mg PO DAILY Qty: 90 4RF Discharge Orders: Discharge Order (Routine); Ordered 09/30/24 Ordered By: Keesha Adames Activity on Discharge: As tolerated Stand Alone Forms: Patient Portal Discharge page Print Language: Belarusian Other Ambulatory Orders: Basic Metabolic Panel (Routine) Timeframe: 1 Week Facility: [facility] - Location: Laboratory Ordered By: Keesha Adames Care Plan Goals: see below Health Concerns: respiratory failure due to influenza a iron deficiency anemia hypertension Plan of Treatment: call to schedule follow up appointment with GI to assess anemia start taking omeprazole stop taking aspirin until follow up with GI complete course of tamiflu dose of lisinopril has been increased PT recommended short term rehab, since you have declined, you will be sent home with VNA and PT services repeat BMP in one week call to schedule follow up appointment with PCP Assessment: see discharge summary
--- NOTE | 2024-09-29 12:01 | P.F2F_ITS ---
Service Date Service Date: 09/29/24 Encounter Date of encounter: 09/29/24 Reasons for Services Signs and symptoms assessed: needs intermediate for blood pressure monitoring, oxygen saturation monitoring Reason for physical therapy: home safety and mobility and therapeutic exercises Overseeing Care: Mary Bustos Homebound: Leaving the home is medically contraindicated at this time without the asist of a device and/or another person due th the listed conditions above and below. Reason homebound: unsteady gait / fall risk Certification: Based on the above findings, I certify that this patient is confined to the home and needs intermittent intermediate care, physical therapy and/or speech therapy, or continues to need occupational therapy. The patient is under my care, and I have initiated the establishment of the plan of care. The patient will be followed by a physician who will periodically review the plan of care. Time Spent With Patient Time: Total time managing care of this patient today ____ minutes.
--- NOTE | 2024-09-29 12:05 | PC.NURSE ---
BP elevated 184/78 manual pulse 92,PA Keesha notified
[2024-09-29] MEDS: amLODIPine Besylate 5 MG TABLET PO (12:38)
[2024-09-29] MEDS: Albuterol/Iprat 2.5/0.5MG 3 ML AMPUL.NEB INHALE (14:47)
--- NOTE | 2024-09-29 14:50 | PC.NURSE ---
Respiratory therapist unablr to come up to adm treatment ,treatment started
--- NOTE | 2024-09-29 15:01 | P.PNIM_ITS ---
Subjective Subjective Date of Service: 09/29/24 Interval History: seen and examined this morning patient sitting up and well appearing, stating she not longer was agreable to go to [facility], planned for discharge on re-exam patient with increased work of breathing although not requiring oxygen, denies feeling short of breath although appears tachypnic Review of Systems Review of Systems: Yes all other systems are reviewed and are negative Constitutional Constitutional: Denies fever(s) Cardiovascular Cardiovascular: Denies chest pain Respiratory Respiratory: Reports cough Gastrointestinal Gastrointestinal: Denies abdominal pain, Denies nausea and Denies vomiting Physical Exam 2 Vital Signs: Vital Signs: Last Vital Signs Temp 97.1 F 09/29/24 11:30 Pulse 92 09/29/24 11:57 Resp 16 09/29/24 11:30 BP 170/78 H 09/29/24 14:32 Pulse Ox 96 09/29/24 11:30 O2 Del Method Room Air 09/29/24 11:30 O2 Flow Rate 2 09/27/24 07:11 Oxygen Flow Rate 2 09/25/24 15:58 BMI result Body Mass Index 24.8 Const: General: alert and awake Nutritional Appearance: average body habitus Resp: Other: tachypenic; b/l wheeze Cardio: Rate: regular rate GI: Inspection: No distended Palpation (GI): Soft to palpation and nontender Objective Data Active Medications Acetaminophen (Acetaminophen 325 Mg Tablet) 975 mg PO Q6H PRN PRN Reason: Pain, Mild 1-3,fever,headache Last Admin: 09/26/24 00:18 Dose: 975 mg Documented By: JEFFERY Albuterol Sulfate (Albuterol Sulfate (0.083%) 2.5 Mg/3 Ml Vial.Neb) 2.5 mg INHALE Q4H PRN PRN Reason: Shortness of Breath/Wheezing Albuterol/Ipratropium (Albuterol/Iprat 2.5/0.5mg 3 Ml Ampul.Neb) 3 ml INHALE RQ4H WHILE AWAKE PRN PRN Reason: Shortness of Breath/Wheezing Last Admin: 09/29/24 14:47 Dose: 3 ml Documented By: DA Amlodipine Besylate (Amlodipine Besylate 5 Mg Tablet) 5 mg PO DAILY [facility]; Protocol Last Admin: 09/29/24 12:38 Dose: 5 mg Documented By: DA Calcium Carbonate (Calcium Carbonate 750 Mg Tab.Chew) 750 mg PO Q4H PRN PRN Reason: Heartburn Ferrous Sulfate (Ferrous Sulfate 324 Mg Tablet.) 324 mg PO DAILY [facility] Last Admin: 09/29/24 09:09 Dose: 324 mg Documented By: ADALBERTO Guaifenesin/Dextromethorphan (Guaifenesin Dm 100/10/5 Ml 5 Ml Syrup) 10 ml PO Q6H PRN PRN Reason: Cough Lisinopril (Lisinopril 20 Mg Tablet) 20 mg PO DAILY [facility]; Protocol Last Admin: 09/29/24 09:09 Dose: 20 mg Documented By: ADALBERTO Magnesium Hydroxide (Milk Of Magnesia 30 Ml Oral.Susp) 30 ml PO DAILY PRN PRN Reason: Constipation Melatonin (Melatonin 3 Mg Tablet) 6 mg PO BEDTIME PRN PRN Reason: Insomnia Methylprednisolone Sodium Succinate (Methylprednisolone Sod Succ 40 Mg/Ml Vial) 40 mg IVPUSH Q24H [facility] Multivitamins/Vitamin C (Multivitamin Tablet) 1 tab PO DAILY [facility] Last Admin: 09/29/24 09:09 Dose: 1 tab Documented By: ADALBERTO Omeprazole (Omeprazole 20 Mg Capsule.) 20 mg PO DAILY@0630 [facility] Last Admin: 09/29/24 05:41 Dose: 20 mg Documented By: MAKAYLA Ondansetron HCl (Ondansetron Hcl 4 Mg/2 Ml Vial) 4 mg IVPUSH Q8H PRN PRN Reason: Nausea and Vomiting Oseltamivir Phosphate (Oseltamivir Phosphate 30 Mg Capsule) 30 mg PO BID [facility] Stop: 09/30/24 21:01 Last Admin: 09/29/24 09:09 Dose: 30 mg Documented By: ADALBERTO Polyethylene Glycol (Polyethylene Glycol 3350 17 Gm Powd.Pack) 17 gm PO DAILY PRN PRN Reason: Constipation Sodium Chloride (0.9 % Sodium Chloride Flush 3 Ml Syringe) 3 ml IVFLUSH QSHIFT [facility] Last Admin: 09/29/24 09:09 Dose: Not Given Documented By: ADALBERTO Non-Admin Reason: No Access Labs 09/27/24 05:40 09/28/24 05:47 Assessment and Plan (1) Influenza A: Status: Acute (2) Iron deficiency anemia: Status: Acute Plan This is an 84-year-old female with a past medical history significant for memory issues, hypertension, osteoarthritis and hyperlipidemia, who presented to the ED due to altered mental status, weakness, abdominal cramping and labored breathing. Workup significant for tachycardia and tachypnea, flu A positive, anemia. acute respiratory failure and Viral Sepsis secondary to influenza A initial chest x-ray negative treated with Tamiflu, DuoNeb q.4 hours as needed, cough syrup prn on room air appearing more tachypnic this afternoon - will repeat cxr to assess for pna and repeat labs Acute toxic metabolic encephalopathy Due to above Resolved Iron-deficiency anemia, likely contributing to weakness hemoglobin 8.1, hematocrit 27.2 on admission, hematocrit dropped to 26.4 and hemoglobin 7.6 question delusional s/p 1 unit of packed RBC, and start ferrous sulfate 1 tablet daily GI they recommend outpatient workup Hypertension bp elevated, lisinopril increased to 20 mg daily hold aspirin due to anemia DNR/DNI VTE prophylaxis: pneumoboots due to severe anemia dispo: PT rec STR, patient was initially agreeable, she is now longer agreeable and wants to go home Patient with sepsis secondary to influenza A complicated by metabolic encephalopathy and iron-deficiency anemia, therefore will require continued inpatient hospitalization Quality Stroke Does the patient have a stroke diagnosis?: No VTE Prior VTE?: No VTE Risk Level:: Medical - moderate - high VTE Device Contraindication: Treatment Not Indicated VTE Drug Contraindication: N/A - Med Ordered
[2024-09-29 15:50] LABS: Hematocrit 31.1 % (37.0-47.0); Hemoglobin 9.7 g/dl (12.0-16.0); Mean Corpuscular HGB Conc 31.2 g/dl (31.0-35.0); Mean Corpuscular Hemoglobin 25.3 pg (27.0-33.0); Mean Platelet Volume 10.7 fL (9.4-12.3); Platelet Count 263 X10*3/uL (160-400); Red Blood Count 3.84 X10*6/uL (4.20-5.50); Red Cell Distribution Width 16.1 % (11.0-16.0); White Blood Count 12.3 X10*3/uL (4.8-10.8)
[2024-09-29 16:22] LABS: B Type Natriuretic Peptide 416 pg/mL (<100)
[2024-09-29 16:26] LABS: Anion Gap 16 (12-20); Blood Urea Nitrogen 24 mg/dL (9-16); Calcium 9.2 mg/dL (8.4-10.2); Carbon Dioxide 19 mmol/L (22-29); Chloride 112 mmol/L (96-108); Creatinine Clr Calc Pharmacy 32.2; Estimated Glomerular Filt Rate 48; Glucose Random 258 mg/dL (60-115); Potassium 4.7 mmol/L (3.3-5.1); Sodium 142 mmol/L (135-145)
[2024-09-29] MEDS: methylPREDNISolone Sod Succ 40 MG/ML VIAL IVPUSH (17:01)
[2024-09-29] MEDS: 0.9 % Sodium Chloride Flush 3 ML SYRINGE IVFLUSH (17:01)
[2024-09-29] MEDS: Furosemide 20 MG/2 ML VIAL IVPUSH (17:49)
[2024-09-30] VITALS: BP 178/82; PULSE 79; RESP 16; TEMP 36.6; O2SAT 97
[2024-09-30] MEDS: 0.9 % Sodium Chloride Flush 3 ML SYRINGE IVFLUSH ×2 (01:03→09:44)
[2024-09-30 01:04] VITALS: BP 149/67; PULSE 84
[2024-09-30] MEDS: Omeprazole 20 MG CAPSULE.DR PO (06:02)
[2024-09-30 07:56] VITALS: BP 172/98; PULSE 73; RESP 16; TEMP 36.3; O2SAT 94
--- NOTE | 2024-09-30 08:46 | MHC.CM.PN ---
Late entry 09/29: patient declining STR. Discussed w/ son and daughter. They prefer patient to go to rehab, but can take her home/provide care if she continues to refuse. CM will continue to follow.
[2024-09-30] MEDS: Oseltamivir Phosphate 30 MG CAPSULE PO (09:41)
[2024-09-30] MEDS: Ferrous Sulfate 324 MG TABLET.DR PO (09:41)
[2024-09-30] MEDS: Multivitamin TABLET 1 TAB PO (09:41)
[2024-09-30 09:42] VITALS: BP 164/68
[2024-09-30] MEDS: lisinopriL 20 MG TABLET PO (09:42)
[2024-09-30 11:35] VITALS: BP 150/65; PULSE 84; RESP 16; TEMP 36.2; O2SAT 95
--- NOTE | 2024-09-30 12:11 | MHC.CM.PN ---
Per hospitalist, patient medically cleared for dc. Continues to refuse STR. CM discussed w/ son again. Patient lives w/ son/DIL, and other family regularly assists. Son does work, but reports that patient has supervision essentially 14/03. Plan for home w/ [facility]. Transport home via BLS, per son request, at 2:30pm. FROYLAN RN, patient and son aware.
== END 2024-09-30 14:33 | disposition home health service (06) | DRG 872 ==
LOC: HO.ED 17:05 → HO.EDOVER 23:31 → HO.S3 09-26 19:07
PROVIDERS: Hospitalist; Admitting Provider Physician Assistant; Emergency Provider Internal Medicine; PCP Internal Medicine; Visit Provider Physician Assistant Medical
DX: A41.89 Other specified sepsis (principal); E78.5 Hyperlipidemia, unspecified; J10.81 Influenza due to other identified influenza virus with encephalopathy; Z66 Do not resuscitate; D50.9 Iron deficiency anemia, unspecified; I10 Essential (primary) hypertension; Z20.822 Contact with and (suspected) exposure to COVID-19; Z87.891 Personal history of nicotine dependence; Z79.82 Long term (current) use of aspirin; Z79.620 Long term (current) use of immunosuppressive biologic; Z79.899 Other long term (current) drug therapy
CPT/HCPCS: 0241U; 36415; 71045; 74176; 80048; 80053; 81001; 82272; 82803; 83010; 83540; 83605; 83615; 83735; 83880; 85025; 85027; 85045; 86850; 86900; 86901; 86923; 87040; 93005; 94640; 97162; 99285; J1940; J2919; P9016

== ENCOUNTER → 2024-09-25 16:37 | Outpatient (BNV) | payer MEDICARE, SELFPAY | PROVIDERS: Emergency Provider Internal Medicine; PCP Internal Medicine; Visit Provider Radiology Diagnostic Radiology | DX: R41.82 Altered mental status, unspecified (principal); R10.30 Lower abdominal pain, unspecified | CPT/HCPCS: 71045; 74176 ==

== ENCOUNTER 2024-09-25 23:10 | Outpatient (BNV) | payer MEDICARE, SELFPAY | END 2024-09-29 15:20 | PROVIDERS: Admitting Provider Physician Assistant; Emergency Provider Internal Medicine; PCP Internal Medicine; Visit Provider Radiology Diagnostic Radiology | DX: R06.02 Shortness of breath (principal) | CPT/HCPCS: 71045 ==

== ENCOUNTER → 2024-09-25 23:10 | Outpatient (BNV) | payer MEDICARE, SELFPAY | PROVIDERS: Admitting Provider Physician Assistant; Emergency Provider Internal Medicine; PCP Internal Medicine; Visit Provider Physician Assistant | DX: J10.1 Influenza due to other identified influenza virus with other respiratory manifestations (principal); D50.9 Iron deficiency anemia, unspecified | CPT/HCPCS: 99223; 99232; 99233; 99239; 99499; G0180 ==

== ENCOUNTER 2024-10-12 09:45 | Outpatient (AMB) | payer MEDICARE, SELFPAY ==
--- NOTE | 2024-10-12 09:43 | A.OFFPC_ITS ---
Intake Visit Reasons: TCM anemic and SOB [phone] iphone Allergies No Known Allergies [No Known Allergies*] Allergy (Verified 10/14/24 01:34) Medication List - Last Reconciled 10/14/24 by Mary Bustos MD aspirin (Adult Low Dose Aspirin) 81 mg PO DAILY dupilumab (Dupixent) 300 mg subcut Q2W lisinopril mg PO DAILY multivitamin 1 tab PO DAILY omeprazole 20 mg PO DAILY@0630 90 days Tobacco use date assessed: 10/12/24 Fall risk assessment: No Falls in past year Last assessed Fall Risk: 10/12/24 Dental Screening Dental Screen Date: 10/12/24 Did you have a dental visit in the last 12 months?: No Did you have a dental problem in the last 6 months where you did not have access to dental care?: No Was dental information given to patient?: No HPI TCM anemic and SOB [phone] iphone HPI Details 84-year-old lady with history of memory issues, hypertension, osteoarthritis and hyperlipidemia who is here for a TCM visit. She was initially brought to the ER due to altered mental status, generalized weakness, abdominal cramping and labored breathing. She was found to have acute toxic metabolic encephalopathy due to influenza A, with negative chest x-ray, treated with Tamiflu and given DuoNeb every 4 hours as needed , low-dose prednisone, and cough medicine taken as needed, which afforded improvement in breathing. There was no hypoxia noted with walking, but patient remains weak and short-term rehab was recommended. Initially patient was agreeable to go to short-term rehab but changed her mind on day of discharge and wanted to just go home, with VNA services. Patient found to be anemic during admission, with a hemoglobin of 8.1 and hematocrit 27.2 on admission. Received 1 unit of packed RBC and started on ferrous sulfate once a day. She was seen by GI during her recent admission and recommend outpatient workup regarding anemia. Found to be hypertensive, and lisinopril dose was increased to 20 mg daily, and to have VNA monitor blood pressure. Basic metabolic panel was ordered by discharging physician to be done in a week but patient has been refusing to get labs done VNA. Spoke to patient and son via telehealth and was found to be at her baseline mentation. As per son she has been eating well, with no new complaints at present time. [facility] Medical History (Updated 10/14/24 @ 02:11 by Mary Bustos MD) Memory change History of dysfunctional uterine bleeding Osteopenia Osteoarthritis involving multiple joints on both sides of body History of rib fracture Impaired fasting glucose Dyslipidemia Essential hypertension Surgical History S/P JEOVANY-BSO Family History Father Diabetes mellitus Mother Breast cancer Social History Household Members: Family Housing: House Do you presently have visiting nurse or other home services: No Alcohol intake: never Patient Tobacco Use Status: Former Tobacco user e-Cigarette/Vaping Use: Never Used Second Hand Smoke Exposure: No Advance Directives Date on File: 12/05/23 service: No Current occupational status: retired Cognitive needs: No Hearing needs: No Vision needs: Yes Questionnaire PHQ-9 Over the last 2 weeks, how often have you been bothered by any of the following problems? 1. Little interest or pleasure in doing things: not at all 2. Feeling down, depressed, or hopeless: not at all 3. Trouble falling or staying asleep, or sleeping too much: not at all 4. Feeling tired or having little energy: not at all 5. Poor appetite or overeating: not at all 6. Feeling bad about yourself - or that you are a failure or have let yourself or your family down: not at all 7. Trouble concentrating on things, such as reading the newspaper or watching television: not at all 8. Moving or speaking so slowly that other people could have noticed. Or the opposite - being so fidgety or restless that you have been moving around a lot more than usual: not at all 9. Thoughts that you would be better off or of hurting yourself in some way: not at all Total score: 0 Depression Screening Interpretation: Negative Depression Screening Done: Yes [id number] - PHQ-9 Billing: Yes Source: Developed by Drs. Isiah Grady, Anna Robles, Bharat Dey and colleagues, with an educational ro from [employer]. Thrive Questionnaire Date Thrive assessed: 10/12/24 I am a: Patient What is your living situation today?: I have a steady place to live Within the past 12 months, did the food you bought not last and you didn't have the money to get more?: Never true Within the past 12 months, did you worry whether your food would run out before you got money to buy more?: Never true Do you have trouble paying for medicines?: No Do you have trouble getting transportation to medical appointments?: No Do you have trouble paying your heating and electricity bill?: No Do you have trouble with day-to-day activities such as bathing, preparing meals, shopping, managing finances, etc.?: Yes Are you currently unemployed and looking for a job?: No Are you interested in more education?: No THRIVE Score: 0 AUDIT C Alcohol Use Questionnaire (AUDIT-C) 1. How often do you have a drink containing alcohol?: Never Total Score: 0 BLANQUITA-7 AMB Questionnaire BLANQUITA-7 Date BLANQUITA - 7 assessed: 06/14/24 Source: Developed by Drs. Isiah Grady, Anna Robles, Bharat Dey and colleagues, with an educational ro from [employer]. Review of Systems Const Denies frequent falls, Denies headache(s) and Reports weakness Eyes Denies change in vision ENT Denies dizziness and Denies headache(s) Card Denies chest pain, Denies rapid heart rate, Denies irregular heart rhythm, Denies leg edema and Denies dyspnea Resp Denies cough and Denies dyspnea GI Denies abdominal pain and Denies hematochezia Reports no additional complaints Musc Denies joint swelling and Reports stiffness Skin/Breast Reports as per HPI Neuro Reports as per HPI, Denies dizziness, Denies frequent falls, Denies headache(s) and Reports weakness Psych Reports no additional complaints Endo Reports no additional complaints Kofi/Lymph Reports no additional complaints Aller/Immun Reports no additional complaints Physical exam (Primary Care) Tobacco/Smoking Status: Tobacco use Status Tobacco use date assessed 10/12/24 10/12/24 09:45 Patient Tobacco Use Status Former Tobacco user 10/12/24 09:45 e-Cigarette/Vaping Use Never Used 10/12/24 09:45 Depression Screening Interpretation: Negative Thrive Assessment: Date of Thrive Assessment Date Thrive assessed 10/08/24 10/12/24 09:45 Telehealth Telehealth Telehealth Platform: Info Location of provider rendering services: practice address Location of patient: address on file Patient Identification confirmed using: Name, : Yes Telehealth method: video Patient verbally consented to treatment: Yes Patient verbally consented to billing insurance company: Yes Patient informed of any privacy concerns related to visit: Yes Minutes spent on Phone/Video with Pt.: 15 Coding Level of Care Code TCM High MDM <= 14 days Diagnoses Iron deficiency anemia, unspecified iron deficiency anemia type D50.9 Iron deficiency anemia type: unspecified iron deficiency Essential hypertension I10 Memory change R41.3 Prurigo nodularis L28.1 Additional Codes PHQ-9 - 34698 - PHQ-9 Billing: Yes ([id number]) Assessment & Plan Assessment & Plan (1) Iron deficiency anemia: Code(s): D50.9 - Iron deficiency anemia, unspecified Category: Medical Qualifiers: Iron deficiency anemia type: unspecified iron deficiency Qualified Code(s): D50.9 - Iron deficiency anemia, unspecified Plan: Advised to continue with iron supplements as prescribed, take it with orange juice or vitamin-C for better absorption. Warned that stool turned black and may cause constipation. Take [id number] stool softeners when taking iron pills. Patient and son does not want to have a referral to GI clinic scheduled at present time,, as patient has been refusing to go anywhere and have further testing done. Repeat CBC and iron profile ordered to be done next month (2) Essential hypertension: Code(s): I10 - Essential (primary) hypertension Category: Medical Plan: Currently on lisinopril 2 mg daily, has VNA to monitor blood pressure and to will repeat basic metabolic panel addition to other labs ordered today. Patient initially refused to have blood drawn, will try again on next visit (3) Memory change: Code(s): R41.3 - Other amnesia Category: Medical Plan: As per son patient's mentation is now back at baseline, but does exhibit fluctuating memory deficits (4) Prurigo nodularis: Code(s): L28.1 - Prurigo nodularis Category: Medical Plan: Receiving Dupixent 300 mg injected every 2 weeks Orders: Orders Vitamin D 25-OH Total 10/12/24 D50.9 - Iron deficiency anemia, unspecified, I10 - Essential (primary) hypertension, M85.89 - Other specified disorders of bone density and structure, multiple sites Complete Blood Count Auto Diff 10/12/24 D50.9 - Iron deficiency anemia, unspe cified, I10 - Essential (primary) hypertension, M85.89 - Other specified disorders of bone density and structure, multiple sites IRON PROFILE 10/12/24 D50.9 - Iron deficiency anemia, unspecified, I10 - Essential (primary) hypertension, M85.89 - Other specified disorders of bone density and structure, multiple sites Vitamin B12 and Folate 10/12/24 D50.9 - Iron deficiency anemia, unspecified, I10 - Essential (primary) hypertension, M85.89 - Other specified disorders of bone density and structure, multiple sites Basic Metabolic Panel 10/12/24 I10 - Essential (primary) hypertension, R73.01 - Impaired fasting glucose
== END 2024-10-12 11:12 | disposition home or self-care (01) ==
LOC: HO.HMCC 09:45
PROVIDERS: PCP Internal Medicine; Visit Provider Internal Medicine
DX: D50.9 Iron deficiency anemia, unspecified (principal); I10 Essential (primary) hypertension; R41.3 Other amnesia; L28.1 Prurigo nodularis

== ENCOUNTER → 2024-10-12 09:45 | Outpatient (BNVA) | payer MEDICARE, SELFPAY | PROVIDERS: PCP Internal Medicine; Visit Provider Internal Medicine | DX: D50.9 Iron deficiency anemia, unspecified (principal); I10 Essential (primary) hypertension; R41.3 Other amnesia; L28.1 Prurigo nodularis | CPT/HCPCS: 96127; 99495 ==